=== PATIENT | male | born 1950 | race Caucasian/White ===

== ENCOUNTER 2016-11-28 17:22 | Emergency (ER) | payer MEDICARE, OTHER ==
[~2016-11-28] VITALS: Ht 185.4 cm; Wt 109.0 kg
[~2016-11-28 17:22] MED LIST: ASPI1TAB69 PO; VENTAER INH
[2016-11-28 17:25] VITALS: BP 161/72; PULSE 72; RESP 20; TEMP 97.8; O2SAT 98
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
[2016-11-28] MEDS ORDERED: LIDOCAINE HCL 1% 50 ML VIAL INFIL ONE (18:00)
[2016-11-28] MEDS ORDERED: TETANUS/DIPHTHERIA TOXOID ADULT 0.5 ML VIAL IM ONE (18:00)
[2016-11-28] MEDS ORDERED: BUPIVACAINE HCL PF 0.5% 10 ML VIAL INFIL ONE (18:00)
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
[2016-11-28] MEDS ORDERED: CEPH-460 PO (18:57)
== END 2016-11-28 19:53 | disposition home or self-care (01) ==
LOC: NEPB 17:22
DX: S61.214A Laceration without foreign body of right ring finger without damage to nail, initial encounter (principal); Z23 Encounter for immunization; Z79.82 Long term (current) use of aspirin; J44.9 Chronic obstructive pulmonary disease, unspecified; I25.10 Atherosclerotic heart disease of native coronary artery without angina pectoris; J45.909 Unspecified asthma, uncomplicated; F17.210 Nicotine dependence, cigarettes, uncomplicated; W45.8XXA Other foreign body or object entering through skin, initial encounter
CPT/HCPCS: 12002; 73140; 90471; 90714

== ENCOUNTER 2017-02-16 08:40 | Inpatient (IN) | payer MEDICARE ==
[~2017-02-16] VITALS: Ht 185.4 cm; Wt 110.0 kg
[2017-02-16] VITALS (8 sets, daily range): BP systolic 130–183; BP diastolic 71–99; PULSE 62–75; RESP 15–19; TEMP 97.7–98; O2SAT 95–99
[~2017-02-16 08:40] MED LIST changes: +CEPH-460 PO; -VENTAER INH
[2017-02-16] MEDS ORDERED: SODIUM CHLORIDE 0.9% FLUSH 10 ML FLUSH IVF PRN (09:30)
--- NOTE | 2017-02-16 09:50 | PD ---
HPI . Syncope Chief Complaint: Syncope/Near-Syncope Time Seen by Provider: 09:17 Travel History International Travel<30 days: No Contact w/Intl Traveler<30days: No Traveled to known affect area: No History of Present Illness HPI Patient presents complaining of syncope. He states that he has been having intermittent syncopal episodes for the past 3 months. He states that they have become more frequent. He states that he is now having an episode about every 2- 3 days. He states that he is usually standing when he becomes dizzy and hot and then has the syncopal episode. The episode is very brief. He states that he has noticed that the symptoms can be brought on by turning his head to the left. He notes no symptoms on turning his head to the right. He denies any associated headache, blurred vision or nausea. He does endorse chronic cough and occasional chest tightness. The cough and chest tightness are not necessarily associated with the syncopal events. DURATION: 3 months TIMING: Every 2-3 days and very brief CONTEXT: Occurs when standing MODIFYING FACTORS:Exacerbated by turning his head to the left ASSOCIATED SYMPTOMS: Feeling hot and dizzy PFSH Past Medical History Hx Anticoagulant Therapy: Yes (ASA) Asthma: Yes Cancer: No Cardiac Catheterization: Yes Cardiovascular Problems: Yes COPD: Yes Coronary Artery Disease: Yes Diabetes: No Diminished Hearing: No Endocrine: No Genitourinary: No Hepatitis: No Hiatal Hernia: No Hypertension: Yes Immune Disorder: No Musculoskeletal: No Neurologic: No Psychiatric: No Reproductive: No Respiratory: Yes Thyroid Disease: No Tetanus Vaccination: < 5 Years Influenza Vaccination: No Past Surgical History Abdominal Surgery: No AICD: No Cardiac Surgery: Yes (patient states he had heart cath at [facility] couple years ago ) Ear Surgery: No Endocrine Surgery: No Eye Surgery: No Genitourinary Surgery: No Gynecologic Surgery: No Joint Replacement: No Oral Surgery: No Pacemaker: No Thoracic Surgery: No Tonsillectomy: Yes Other Surgery: Yes (TONSILECTOMY 1959) Social History Alcohol Use: No Tobacco Use: Yes (smokes 1 1/2 packs a day ) Substance Use: No Allergies-Medications (Allergen,Severity, Reaction): Coded Allergies: No Known Allergies (Unverified , 02/16/17) Reported Meds & Prescriptions Reported Meds & Active Scripts Active Reported Aspirin 81 Mg Tabdr 81 Mg PO DAILY Review of Systems Except as stated in HPI: all other systems reviewed are Neg General / Constitutional: No: Fever, Chills Eyes: No: Diploplia, Blurred Vision HENT: Positive: Vertigo, No: Headaches Cardiovascular: Positive: Chest Pain or Discomfort Respiratory: Positive: Cough, Shortness of Breath Gastrointestinal: No: Nausea, Vomiting Neurologic: Positive: Dizziness, Syncope, No: Focal Abnormalities, Headache, Change in Mentation, Slurred Speech, Paresthesia, Incontinence Physical Exam Narrative GENERAL: Pleasant, elderly man who is currently in no acute distress. SKIN: Warm and dry. His feet are a little dirty. HEAD: Atraumatic. Normocephalic. EYES: Pupils equal and round. Extraocular movements are intact. ENT: No nasal bleeding or discharge. Mucous membranes pink and moist. NECK: Trachea midline. Neck is supple. CARDIOVASCULAR: Regular rate and rhythm. Heart sounds are normal. RESPIRATORY: No accessory muscle use. Lungs are clear with full air movement throughout. GASTROINTESTINAL: Abdomen soft, non-tender, nondistended. No pulsatile abdominal mass. MUSCULOSKELETAL: No obvious deformities. No edema. NEUROLOGICAL: Awake and alert. No obvious cranial nerve deficits. Motor grossly within normal limits. Normal speech. PSYCHIATRIC: Appropriate mood and affect; insight and judgment normal. Data Data Last Documented VS Vital Signs Date Time Temp Pulse Resp B/P Pulse Ox O2 Delivery O2 Flow Rate FiO2 02/16/17 09:45 67 19 171/92 97 Room Air 02/16/17 08:41 97.7 Orders Electrocardiogram (02/16/17 09:18) Complete Blood Count With Diff (02/16/17 09:18) Comprehensive Metabolic Panel (02/16/17 09:18) Magnesium (Mg) (02/16/17 09:18) Ckmb (Isoenzyme) Profile (02/16/17 09:18) Troponin I (02/16/17 09:18) Chest, Single Ap (02/16/17 09:18) Ct Brain W/O Iv Contrast(Rout) (02/16/17 09:18) Ecg Monitoring (02/16/17 09:18) Iv Access Insert/Monitor (02/16/17 09:18) Oximetry (02/16/17 09:18) Sodium Chloride 0.9% Flush (Ns Flush) (02/16/17 09:30) Cta Brain W Iv Contrast W 3d (02/16/17 ) Cta Neck W Iv Contrast W 3d (02/16/17 ) CKMB (02/16/17 09:45) CKMB% (02/16/17 09:45) Iohexol 350 Inj (Omnipaque 350 Inj) (02/16/17 11:37) Labs Laboratory Tests Test 02/16/17 09:45 White Blood Count 6.8 TH/MM3 Red Blood Count 4.81 MIL/MM3 Hemoglobin 14.8 GM/DL Hematocrit 43.0 % Mean Corpuscular Volume 89.4 FL Mean Corpuscular Hemoglobin 30.7 PG Mean Corpuscular Hemoglobin 34.4 % Concent Red Cell Distribution Width 14.4 % Platelet Count 215 TH/MM3 Mean Platelet Volume 7.4 FL Neutrophils (%) (Auto) 56.0 % Lymphocytes (%) (Auto) 33.4 % Monocytes (%) (Auto) 5.7 % Eosinophils (%) (Auto) 4.0 % Basophils (%) (Auto) 0.9 % Neutrophils # (Auto) 3.8 TH/MM3 Lymphocytes # (Auto) 2.3 TH/MM3 Monocytes # (Auto) 0.4 TH/MM3 Eosinophils # (Auto) 0.3 TH/MM3 Basophils # (Auto) 0.1 TH/MM3 CBC Comment DIFF FINAL Differential Comment Sodium Level 140 MEQ/L Potassium Level 3.9 MEQ/L Chloride Level 107 MEQ/L Carbon Dioxide Level 27.6 MEQ/L Anion Gap 5 MEQ/L Blood Urea Nitrogen 20 MG/DL Creatinine 0.87 MG/DL Estimat Glomerular Filtration 88 ML/MIN Rate Random Glucose 117 MG/DL Calcium Level 8.8 MG/DL Magnesium Level 2.4 MG/DL Total Bilirubin 1.3 MG/DL Aspartate Amino Transf 15 U/L (AST/SGOT) Alanine Aminotransferase 23 U/L (ALT/SGPT) Alkaline Phosphatase 65 U/L Total Creatine Kinase 124 U/L Creatine Kinase MB 3.0 NG/ML Troponin I LESS THAN 0.02 NG/ML Total Protein 7.3 GM/DL Albumin 3.8 GM/DL [facility] Medical Decision Making Medical Screen Exam Complete: Yes Emergency Medical Condition: Yes Interpretation(s) EKG shows a sinus rhythm with no ST segment elevation or depression. He does have left atrial enlargement. His EKG is unchanged from previous. Differential Diagnosis My differential diagnosis of syncope includes but is not limited to cardiac arrhythmia, hypovolemia, anemia, neurological catastrophe, vasovagal response Narrative Course Patient presents for evaluation of syncopal episodes which have been an ongoing problem for several months. Episodes are very brief. They occur about every 2- 3 days. Patient has noticed the symptoms are exacerbated by turning his head to the left. Therefore, I will interrogate his carotid arteries and brain. CBC & BMP Diagram 02/16/17 09:45 Cardiac enzymes are negative. Chest x-ray is read as negative by the radiologist. The chest x-ray has been independently viewed by me. Physician Communication Physician Communication Dr. Clark will admit for further evaluation Admitting Information Admitting Physician Requests: Admit Condition: Stable Kassie De La Torre MD Feb 16, 2017 09:50
--- NOTE | 2017-02-16 09:59 | RADRPT ---
EXAM DATE/TIME: 02/16/2017 09:32 [facility] COMPARISON: No previous studies available for comparison. INDICATIONS : Patient woke up this morning short of breath. MEDICAL HISTORY : Asthma. SURGICAL HISTORY : Tonsillectomy. Cardiac catherization. ENCOUNTER: Initial ACUITY: 1 day PAIN SCORE: 0/10 LOCATION: Bilateral chest FINDINGS: A single view of the chest demonstrates the lungs to be symmetrically aerated without evidence of mas s, infiltrate or effusion. The cardiomediastinal contours are unremarkable. Osseous structures are intact. CONCLUSION: No acute disease. Himanshu Harkins MD FACR on February 16, 2017 at 9:57 Board Certified Radiologist. This report was verified electronically.
[2017-02-16 10:07] LABS: AUTOMATED NEUTROPHIL # 3.8 TH/MM3 (1.8-7.7); BASOPHIL # 0.1 TH/MM3 (0-0.2); BASOPHIL % 0.9 % (0.0-2.0); EOSINOPHIL # 0.3 TH/MM3 (0-0.4); HEMO FLAGS DIFF FINAL; LYMPH % 33.4 % (9.0-44.0); LYMPHOCYTE # 2.3 TH/MM3 (1.0-4.8); MEAN CELL VOLUME 89.4 FL (80.0-100.0); MEAN CORPUSCULAR HEMOGLOBIN 30.7 PG (27.0-34.0); MEAN CORPUSCULAR HGB CONC 34.4 % (32.0-36.0); MONO % 5.7 % (0.0-8.0); PLATELET COUNT 215 TH/MM3 (150-450); RED BLOOD COUNT 4.81 MIL/MM3 (4.50-5.90); RED CELL DISTRIBUTION WIDTH 14.4 % (11.6-17.2); WHITE BLOOD COUNT 6.8 TH/MM3 (4.0-11.0)
[2017-02-16 10:25] LABS: ALT (GPT) 23 U/L (12-78); ANION GAP 5 MEQ/L (5-15); AST (GOT) 15 U/L (15-37); BICARBONATE 27.6 MEQ/L (21.0-32.0); BLOOD UREA NITROGEN 20 MG/DL (7-18); CHLORIDE 107 MEQ/L (98-107); GLOMERULAR FILTRATION RATE 88 ML/MIN (>89); MAGNESIUM 2.4 MG/DL (1.5-2.5); POTASSIUM 3.9 MEQ/L (3.5-5.1); SODIUM (NA) 140 MEQ/L (136-145)
[2017-02-16 10:29] LABS: ALKALINE PHOSPHATASE 65 U/L (45-117); CREATINE KINASE 124 U/L (39-308); TOTAL BILIRUBIN ADULT 1.3 MG/DL (0.2-1.0)
[2017-02-16] MEDS ORDERED: IOHEXOL 350 MG/ML 10 ML VIAL (for RAD DIAG) IV ONE (11:37)
--- NOTE | 2017-02-16 11:58 | RADRPT ---
EXAM DATE/TIME: 02/16/2017 11:13 [facility] COMPARISON: No previous studies available for comparison. INDICATIONS : Patient is complaining of dizziness several days with 2 syncople episodes RADIATION DOSE: 56.35 CTDIvol (mGy) MEDICAL HISTORY : Cardiovascular disease. Hypertension. SURGICAL HISTORY : None. ENCOUNTER: Initial ACUITY: 1 day PAIN SCALE: 3/10 LOCATION: cranial TECHNIQUE: Multiple contiguous axial images were obtained of the head. Using automated exposure control and adj ustment of the mA and/or kV according to patient size, radiation dose was kept as low as reasonably a chievable to obtain optimal diagnostic quality images. FINDINGS: CEREBRUM: The ventricles are normal for age. No evidence of midline shift, mass lesion, hemorrhage or acute in farction. No extra-axial fluid collections are seen. POSTERIOR FOSSA: The cerebellum and brainstem are intact. The 4th ventricle is midline. The cerebellopontine angle i s unremarkable. EXTRACRANIAL: The visualized portion of the orbits is intact. SKULL: The calvaria is intact. No evidence of skull fracture. CONCLUSION: No acute disease. Himanshu Harkins MD FACR on February 16, 2017 at 11:56 Board Certified Radiologist. This report was verified electronically.
--- NOTE | 2017-02-16 12:17 | RADRPT ---
EXAM DATE/TIME: 02/16/2017 11:13 [facility] COMPARISON: CT BRAIN W/O CONTRAST, February 16, 2017, 11:13. INDICATIONS : Dizziness for several days with 2 syncople episodes IV CONTRAST: 80 cc Omnipaque 350 (iohexol) IV ; Cumulative dose for multiple exams. RADIATION DOSE: 17.56 CTDIvol (mGy) ; Combined studies MEDICAL HISTORY : Cardiovascular disease. Hypertension. SURGICAL HISTORY : None. ENCOUNTER: Initial ACUITY: 1 day PAIN SCALE: 3/10 LOCATION: Cranial TECHNIQUE: Volumetric scanning was performed using a multi-row detector CT scanner. The data was post processed with a variety of visualization algorithms including full volume maximum intensity pr ojection, multi-planar sliding thin slab reformation, curved planar reformation, and surface renderin g techniques. Using automated exposure control and adjustment of the mA and/or kV according to patie nt size, radiation dose was kept as low as reasonably achievable to obtain optimal diagnostic quality images. FINDINGS: CTA of the brain was performed. Both vertebral arteries are patent. The basilar artery is very small and diminutive. Both posterior cerebral arteries arise from the anterior circulation as expected. There is no evidence for a dissection. Carotids are patent. There is no evidence for aneurysm. There is no evidence for occlusion or dissection. CONCLUSION: Negative CTA as described above. The basilar artery is very small and diminutive. Vertebral basilar disease could be a consideration. Himanshu Harkins MD FACR on February 16, 2017 at 11:57 Board Certified Radiologist. This report was verified electronically.
--- NOTE | 2017-02-16 12:57 | RADRPT ---
EXAM DATE/TIME: 02/16/2017 11:13 [facility] COMPARISON: No previous studies available for comparison. INDICATIONS : Dizziness for several weeks with 2 syncople episodes IV CONTRAST: 80 cc Omnipaque 350 (iohexol) IV ; Cumulative dose for multiple exams. RADIATION DOSE: 17.56 CTDIvol (mGy) MEDICAL HISTORY : Cardiovascular disease. Hypertension. SURGICAL HISTORY : None. ENCOUNTER: Initial ACUITY: 1 day PAIN SCALE: 3/10 LOCATION: neck Elevated flow velocities and ICA/CCA ratios have been found to correlate with increased degrees of vessel stenosis, calculated as percentage of diameter relative to a normal segment of distal ICA/CCA. TECHNIQUE: Volumetric scanning was performed using a multirow detector CT scanner. The data was post processed with a variety of visualization algorithms including full-volume maximum intensity pro jection, multiplanar sliding thin-slab reformation, curved-planar reformation, and surface-rendering techniques. Using automated exposure control and adjustment of the mA and/or kV according to patient size, radiation dose was kept as low as reasonably achievable to obtain optimal diagnostic quality i mages. FINDINGS: AORTIC ARCH: There is a three-vessel origin of the great vessels from the aorta. No evidence of ostial narrowing. The left vertebral arises from the arch. RIGHT CAROTID: The common carotid artery is intact. The carotid bulb has a normal configuration w ithout ulceration or narrowing. The internal carotid artery lumen is smooth without stenosis. The ex ternal carotid artery is intact. LEFT CAROTID: The common carotid artery is intact. The carotid bulb has a normal configuration w ithout ulceration or narrowing. The internal carotid artery lumen is smooth without stenosis. The e xternal carotid artery is intact. VERTEBRALS: The vertebral arteries have a symmetric diameter. No stenotic lesions are seen. CONCLUSION: Negative for stenosis or dissection. Small vertebrobasilar system. Himanshu Harkins MD FACR on February 16, 2017 at 12:54 Board Certified Radiologist. This report was verified electronically.
[2017-02-16] MEDS ORDERED: SODIUM CHLORIDE 0.9% FLUSH 10 ML FLUSH IV FLUSH PRN (13:45)
--- NOTE | 2017-02-16 14:13 | HHI.HP ---
HPI Service [facility] Primary Care Physician Hansa Burns Admission Diagnosis syncope Diagnoses: Chief Complaint: Syncope (Kati PuentesTammi BISWAS) Travel History International Travel<30 Days: No Contact w/Intl Traveler <30 Da: No Traveled to Known Affected Are: No (Kait Puentes) History of Present Illness This is a 66-year-old male with significant past medical history hyperlipidemia , COPD, coronary artery disease. Patient presented to the emergency room with complaint of having intermittent syncopal episodes for the last 3 months. Patient is somewhat of a poor historian. Indicates that this episodes have been happening for about 2-3 months. States that this episodes have been coming more frequently, usually has 2-3 a day. Sometimes he can be sitting or just standing. He feels hot and a flushing sensation going up to the back of the neck and then he feels dizzy. Sometimes he has enough warning and knows he' s about to pass out therefore he is able to sit, other times he has fallen to the ground. Indicates he usually wakes up immediately. He has a couple of abrasions to his forearms from the falls but no other significant injuries. At times the symptoms can be brought on by turning his head to the left. He also endorses chest tightness that sometimes is continuous, he is chronically short of breath from his COPD. Has noted dyspnea with exertion. He has a chronic cough with occasional sputum. No fever, no chills. Indicates he has noted that in the last couple months he is very sleepy and more fatigued. He did go see his primary care physician in December and he went to outpatient imaging center to have workup, he's not sure exactly what he had but it sounds like he may have had a CT of the chest and the abdomen. He was referred to a refinery operator helper cracking unit and planner internship. He was due to see the refinery operator helper cracking unit this week but had not found a planner internship yet. He did see planner internship Dr. Martinez approximately 8-10 years ago at [facility] and had cardiac catheter that showed some disease but he did not require any interventions. Patient endorses that he has been trying to quit smoking, he used to be a 2-3 pack a day smoker for the last 40 years. He is currently down to 1-1/2 packs a day. He denies any illegal drug use, no substance abuse. He is very concerned as he is raising a granddaughter. He denies any prior episodes of syncope, no strokes, no diabetes , no hypertension. Patient presented to the emergency room, laboratory workup completed was essentially unremarkable. Troponin was negative. CBC was unremarkable. Imaging studies were completed, no significant findings. No evidence of stroke. Blood pressure is slightly elevated. Last Impressions Head CT 02/16/17917 Signed Impressions: Service Date/Time: Thursday, February 16, 2017 11:13 - CONCLUSION: No acute disease. Himanshu Harkins MD FACR Chest X-Ray 02/16/17917 Signed Impressions: Service Date/Time: Thursday, February 16, 2017 09:32 - CONCLUSION: No acute disease. iHmanshu Harkins MD FACR Neck CTA 02/16/17 0000 Signed Impressions: Service Date/Time: Thursday, February 16, 2017 11:13 - CONCLUSION: Negative for stenosis or dissection. Small vertebrobasilar system. Himanshu Harkins MD FACR Twelve-lead EKG shows sinus rhythm with left atrial enlargement. Patient is admitted for further evaluation and treatment. (Kati Puentes) Review of Systems ROS Limitations: Poor Historian Respiratory: COMPLAINS OF: Cough, Snoring, Wheezing, Sputum production Cardiovascular: COMPLAINS OF: Syncope, Dyspnea on Exertion (Kati Puentes) Past Family Social History Past Medical History Hyperlipidemia Coronary artery disease, cardiac catheter 8-10 years ago for a hospital COPD Tobacco abuse Cyst in kidney, is causing hematuria, follows up with Dr. Marina Past Surgical History Tonsillectomy Cardiac catheter Colonoscopy many years ago Reported Medications Reported Meds & Active Scripts Active Reported Aspirin 81 Mg Tabdr 81 Mg PO DAILY (Kati Puentes) Allergies: Coded Allergies: No Known Allergies (Unverified , 02/16/17) Active Ordered Medications Inpatient Medications Albuterol/ Ipratropium (Duoneb Neb) 1 ampule QID NEB PRN NEB wheezing; Start at 14:45 Aspirin (Ecotrin Ec) 81 mg DAILY PO ; Start 02/17/17 at 09:00 Miscellaneous Information 1 DAILY T-DERMAL ; Start 02/17/17 at 09:00 Nicotine (Habitrol 7 Mg Patch.24 Hr) 1 patch DAILY T-DERMAL ; Start 02/16/17 at 14:45 Sodium Chloride (NS 1000 ml Inj) 1,000 ml @ 100 mls/hr Q10H IV ; Start at 13:40 Sodium Chloride (NS Flush) 2 ml BID IV FLUSH ; Start 02/16/17 at 21:00 Sodium Chloride 2 ml 2 ml UNSCH PRN IVF FLUSH AFTER USING IV ACCESS; Start at 09:30; Stop 02/16/17 at 13:54; Status DC Family History Reviewed, noncontributory Social History 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 Raising a granddaughter who is 8 years old. No alcohol abuse, no substance abuse. Was smoking 2-3 packs of cigarettes a day for the last 40 years, currently down to one and half packs a day. (Kati Puentes) Physical Exam Vital Signs Vital Signs Date Time Temp Pulse Resp B/P Pulse Ox O2 Delivery O2 Flow Rate FiO2 02/16/17 12:00 62 15 158/99 98 Room Air 02/16/17 09:45 67 19 171/92 97 Room Air 02/16/17 09:30 98 Room Air 02/16/17 08:41 97.7 75 16 183/86 99 Room Air Physical Exam GENERAL: This is a well-nourished male, appears older than stated age. SKIN: Well-healed abrasions noted to forearms. HEAD: Atraumatic. Normocephalic. No temporal or scalp tenderness. EYES: Pupils equal round and reactive. Extraocular motions intact. No scleral icterus. No injection or drainage. ENT: Nose without bleeding, purulent drainage or septal hematoma. Throat without erythema, tonsillar hypertrophy or exudate. Uvula midline. Airway patent. NECK: Trachea midline. No JVD or lymphadenopathy. Supple, nontender, no meningeal signs. CARDIOVASCULAR: Regular rate and rhythm without murmurs, gallops, or rubs. Distant heart sounds. RESPIRATORY: Diminished, poor inspiratory effort. GASTROINTESTINAL: Abdomen soft, non-tender, nondistended. No hepato-splenomegaly , or palpable masses. No guarding. MUSCULOSKELETAL: Extremities without clubbing, cyanosis. Trace ankle edema. Pedal pulses 2+ bilaterally No joint tenderness, effusion, or edema noted. No calf tenderness. Negative Homans sign bilaterally. NEUROLOGICAL: Awake and alert. Cranial nerves II through XII intact. Motor and sensory grossly within normal limits. Five out of 5 muscle strength in all muscle groups. Normal speech. Laboratory Laboratory Tests Test 02/16/17 09:45 White Blood Count 6.8 Red Blood Count 4.81 Hemoglobin 14.8 Hematocrit 43.0 Mean Corpuscular Volume 89.4 Mean Corpuscular Hemoglobin 30.7 Mean Corpuscular Hemoglobin 34.4 Concent Red Cell Distribution Width 14.4 Platelet Count 215 Mean Platelet Volume 7.4 Neutrophils (%) (Auto) 56.0 Lymphocytes (%) (Auto) 33.4 Monocytes (%) (Auto) 5.7 Eosinophils (%) (Auto) 4.0 Basophils (%) (Auto) 0.9 Neutrophils # (Auto) 3.8 Lymphocytes # (Auto) 2.3 Monocytes # (Auto) 0.4 Eosinophils # (Auto) 0.3 Basophils # (Auto) 0.1 CBC Comment DIFF FINAL Differential Comment Sodium Level 140 Potassium Level 3.9 Chloride Level 107 Carbon Dioxide Level 27.6 Anion Gap 5 Blood Urea Nitrogen 20 Creatinine 0.87 Estimat Glomerular Filtration 88 Rate Random Glucose 117 Calcium Level 8.8 Magnesium Level 2.4 Total Bilirubin 1.3 Aspartate Amino Transf 15 (AST/SGOT) Alanine Aminotransferase 23 (ALT/SGPT) Alkaline Phosphatase 65 Total Creatine Kinase 124 Creatine Kinase MB 3.0 Troponin I LESS THAN 0.02 Total Protein 7.3 Albumin 3.8 (Kati Puentes) Result Diagram: 02/16/1745 02/16/17944 Imaging Last Impressions Head CT 02/16/17917 Signed Impressions: Service Date/Time: Thursday, February 16, 2017 11:13 - CONCLUSION: No acute disease. Himanshu Harkins MD FACR Chest X-Ray 02/16/17917 Signed Impressions: Service Date/Time: Thursday, February 16, 2017 09:32 - CONCLUSION: No acute disease. Himanshu Harkins MD FACR Neck CTA 02/16/17 0000 Signed Impressions: Service Date/Time: Thursday, February 16, 2017 11:13 - CONCLUSION: Negative for stenosis or dissection. Small vertebrobasilar system. Himanshu Harkins MD FACR (Kati Puentes) Assessment and Plan Problem List: (1) Syncope (2) CAD (coronary artery disease) (3) COPD (chronic obstructive pulmonary disease) (4) Elevated BP without diagnosis of hypertension (5) Tobacco abuse (6) Emphysema lung Assessment and Plan Admit to Dr. Clark 66-year-old male with significant past medical history of COPD, hyperlipidemia. Patient presented to emergency room with complaint of syncopal episode, worsening over the last 3 months, associated with chest tightness, dyspnea with exertion. Has noted increased fatigue. Syncope, etiology unclear Consult cardiology and neurology Continuous cardiac telemetry -Continue with serial cardiac enzymes Neuro checks Cautious hydration We will check 2-D echo, carotid ultrasound We will check TSH, B12, RPR -Orthostatics every shift COPD, stable DuoNeb's when necessary Oxygen as needed Tobacco abuse counseling completed, nicotine patch offered her, patient has accepted. Knows he has to quit and has been working very hard at home. Elevated blood pressure, initially had during admission, is coming down without any intervention Continue to monitor for now, will not start any medications unless it remains elevated. Hyperlipidemia -we will check lipid profile in the morning Home medications reviewed, initiated as indicated SCDs for DVT prophylaxis Plan of care has been reviewed with the patient, attending and registered nurse. Further management of the patient will be dependent on the hospital course This patient was seen by myself and Dr. Clark, this H&P is written on his behalf (Kati Puentse) Assessment and Plan Pt seen and examined as above chart reviewed dw ER physician meds reviwed labs reviewed rad data reviwed previous notes reviewed [facility] input chago biswas about plan of care dw pt dw rn agree with above plan of care (Jordon Clark MD) Problem Qualifiers (1) Syncope: Qualified Code: R55 - Syncope, unspecified syncope type (2) CAD (coronary artery disease): Qualified Code: I25.118 - Coronary artery disease involving [place] coronary artery of [place] heart with other form of angina pectoris (3) COPD (chronic obstructive pulmonary disease): Qualified Code: J44.9 - Chronic obstructive pulmonary disease, unspecified COPD type (4) Emphysema lung: Qualified Code: J43.9 - Pulmonary emphysema, unspecified emphysema type Kati Puentes Feb 16, 2017 14:13 Jordon Clark MD Feb 16, 2017 20:40
[2017-02-16] MEDS ORDERED: RESP: ALBUTEROL 2.5 MG/IPRATROPIUM 0.5 MG NEB (PRN) NEB (14:45)
--- NOTE | 2017-02-16 16:18 | RADRPT ---
EXAM DATE/TIME: 02/16/2017 14:23 [facility] COMPARISON: No previous studies available for comparison. INDICATIONS : Syncope. MEDICAL HISTORY : Chronic obstructive pulmonary disease. Hypertension. CAD. SURGICAL HISTORY : Tonsillectomy. Cardiac catheterization. ENCOUNTER: Initial ACUITY: 3 months PAIN SCORE: 1/10 LOCATION: Bilateral neck PEAK SYSTOLIC VELOCITIES (cm/sec): ICA/CCA RATIO: Right: 0.9 Left: 0.9 ICA: Right: 51 Left: 53 CCA: Right: 58 Left: 57 ECA: Right: 94 Left: 94 VERTEBRAL: Right: 28 antegrade Left: 39 antegrade Elevated flow velocities and ICA/CCA ratios have been found to correlate with increased degrees of vessel stenosis, calculated as percentage of diameter relative to a normal segment of distal ICA/CCA FINDINGS: RIGHT CAROTID: No significant stenosis is visualized. The waveforms are within normal limits. LEFT CAROTID: No significant stenosis is visualized. The waveforms are within normal limits. VERTEBRAL ARTERIES: Antegrade flow is seen in both vertebral arteries. MISCELLANEOUS: None. CONCLUSION: 1. Patent carotid arteries bilaterally. 2. Antegrade flow involving both vertebral arteries. Wilmer Valle Jr., MD on February 16, 2017 at 16:14 Board Certified Radiologist. This report was verified electronically.
--- NOTE | 2017-02-16 16:29 | MB ---
cc: STEPHANY NORTON M.D. DATE OF CONSULTATION 02/16/2017 REASON FOR CONSULTATION Evaluation of syncope. HISTORY OF THE PRESENT ILLNESS Watson Smiley is a 66-year-old man whom I am consulting on for syncope. He says he has been having intermittent syncope for the last three months. It happens two to three times a week. Typically he is standing, he will feel dizzy and hot. Often he notices it comes on when he turns his head to the left. He gets a smell, something like Clorox or ammonia and the he passes out completely. He usually thinks that he is only out for a couple of seconds and then comes right to. Also has presyncope if he coughs real hard. He has a longstanding history of smoking with severe COPD and continues to smoke. He has had a cardiac cath apparently by Dr. Martinez at the [facility] so we are talking 10 years ago or more. He does not remember really what was found on that. He has had intermittent hypertension; he is on no medications for this. He is followed by Dr. Hansa Alfredo outside of the hospital. He describes a low grade constant tightness in his chest, a squeezing feeling, that gets better after he burps and he has this he says all the time and it gets worse when his wheezing is worse. He uses an inhaler for the wheezing. Episodes of dizziness typically occur when he is standing and he gets a dizzy hot feeling. PAST SURGICAL HISTORY 1. Includes tonsillectomy. 2. He has had previous heart cath as described. SOCIAL HISTORY Smokes a pack and a half a day. He is . MEDICATIONS Include: Aspirin. REVIEW OF SYSTEMS Complete review of systems gone over and noncontributory. PHYSICAL EXAMINATION GENERAL: Well-developed, well-nourished white male in no acute distress. VITAL SIGNS: Charted. HEENT: Exam unremarkable. NECK: No JVD, no bruits. CHEST: Shows diffuse diminished breath sounds throughout. CARDIOVASCULAR: Exam S1-S2, regular rate and rhythm. I do not appreciate murmurs or gallops. ABDOMEN: Soft, nontender. No masses or organomegaly. EXTREMITIES: No clubbing, cyanosis or edema. Pulses are intact. EKG shows sinus rhythm, slight left atrial enlargement and minor nonspecific T-wave abnormality. IMAGING He has had multiple radiographic studies at this point chest x-ray, head CT, head CTA, neck CTA with no remarkable findings. LABORATORY DATA CBC is normal. His comprehensive metabolic profile notable for glucose of 117, creatinine 0.87. Troponin is negative. IMPRESSION A 66-year-old man with repetitive episodes of the syncope, etiology unclear. PLAN I did a carotid sinus massage with a nurse recording strips. There was no bradycardia, pauses, rubbing on his left carotid. There was some slowing in his heart rate rubbing on his right carotid but he did not pass out. There is no evidence at this time for carotid disease. I would like to check an echo to see what his LV function shows. The preceding smell or ammonia or Clorox is interesting me and I am wonder if neurology will find that this is suggestive of a possible seizure. He will likely need an event recorder at discharge. Further therapy to be determined. MD CARLITO Maradiaga/BOBBY /3:48 PM /4:06 PM
--- NOTE | 2017-02-16 17:16 | PD.CONS ---
History of Present Illness Service Neurology Consult Requested By medical Reason for Consult syncope Primary Care Physician Hansa Burns History of Present Illness 66-year-old male admitted for recurrent syncope. ongoing problem for the past several weeks. can feel lightheaded when he stands or turns head to left? not the best historian. did not see episode today. seen by cardiology. carotid massage was done by dealer compliance representative and no syncope produced. on a rare occasion has gotten a sulfa/nh3 odor. no hx of sz.stroke/tia. no jerking, no b/b incontinence. no post-ictal garcia. ct brain nml. cta carotids nml. 183/86. glucose 117. smokes 1.5 ppd x decades. Review of Systems ROS Limitations: as above, rest of 12 point negative Past Family Social History Past Medical History Hyperlipidemia Coronary artery disease, cardiac catheter 8-10 years ago for a hospital COPD Tobacco abuse Cyst in kidney, is causing hematuria, follows up with Dr. Marina Past Surgical History Tonsillectomy Cardiac catheter Colonoscopy many years ago Reported Medications Reported Meds & Active Scripts Active Reported Aspirin 81 Mg Tabdr 81 Mg PO DAILY Allergies: Coded Allergies: No Known Allergies (Unverified , 02/16/17) Family History Reviewed, noncontributory Social History No alcohol abuse, no substance abuse. one and half packs a day. Review of Systems All other ROS: ROS reviewed as documented in chart Past Family Social History Allergies: Coded Allergies: No Known Allergies (Unverified , 02/16/17) Active Ordered Medications Current Medications Medications (Trade) Dose Ordered Sig/Kayla Route Start Time Stop Time Status Last Admin (NS 1000 ml Inj) 1,000 ml @ 100 mls/hr Q10H IV 02/16/17 13:40 (NS Flush) 2 ml UNSCH PRN IV FLUSH 02/16/17 13:45 (NS Flush) 2 ml BID IV FLUSH 02/16/17 21:00 (Ecotrin Ec) 81 mg DAILY PO 02/17/17 09:00 (Habitrol 7 Mg Patch.24 Hr) 1 patch DAILY T-DERMAL 02/16/17 14:45 Miscellaneous Information 1 DAILY T-DERMAL 02/17/17 09:00 Exam I&O / VS Vital Signs Date Time Temp Pulse Resp B/P Pulse Ox O2 Delivery O2 Flow Rate FiO2 02/16/17 16:32 68 18 148/96 65 18 169/90 70 18 145/89 02/16/17 12:00 62 15 158/99 98 Room Air 02/16/17 09:45 67 19 171/92 97 Room Air 02/16/17 09:30 98 Room Air 02/16/17 08:41 97.7 75 16 183/86 99 Room Air General: Alert and Oriented, No acute distress Eye: EOMI Respiratory: Non-labored respirations Cardiology: Normal rate Musculoskeletal: ROM Neurologic: Alert, Oriented, Normal sensory, Normal motor, No focal defects, CN II-XII intact, Normal DTR's Psychiatric: Cooperative, Appropriate mood & affect, Normal judgement, Non- suicidal Review/Management Diagnosis/Plan: (1) Syncope Plan: etiology: possibly 2/2 vertebrobasilar dz. + cta brain. other considerations: orthostatic/ arrhythmia r/o/ vestibular dz styloid compression of carotid/vert is possibility but cta's nml sz lesser likely but possible with questionable aura with hx of chronic tob use, would be concerned about a cardiac etiology recs tele/event monitor mri/mra brain aspirin/plavix; stop aspirin in 6 weeks check lipids may need cta's done with neck flexion/extension/rotation eeg tobacco cessation orthostatic bp's no driving (2) Tobacco abuse Plan: cessation (3) COPD (chronic obstructive pulmonary disease) Plan: tob cessation Problem Qualifiers (1) Syncope: Qualified Code: R55 - Syncope, unspecified syncope type (2) COPD (chronic obstructive pulmonary disease): Qualified Code: J44.9 - Chronic obstructive pulmonary disease, unspecified COPD type Tico Romero MD Feb 16, 2017 17:15
[2017-02-16] MEDS: SODIUM CHLOR 0.9% 1000 ML INJ 1,000 ML IV SCH (17:27)
[2017-02-16] MEDS: NICOTINE 7 MG/24 HR PATCH T-DERMAL SCH (17:28)
[2017-02-16] MEDS: CLOPIDOGREL 75 MG TAB PO SCH (18:36)
--- NOTE | 2017-02-16 19:55 | EKG ---
Date Performed: 02/16/2017 Time Performed: 09:25:23 PTAGE: 66 years EKG: Sinus rhythm POSSIBLE LEFT ATRIAL ENLARGEMENT NONSPECIFIC ST & T-WAVE ABNORMALITY BORDERLINE ECG PREVIOUS TRACING : 10/23/2016 22.01 Compared to prior tracing no significant change DOCTOR: Jesus Hernandez Interpretating Date/Time 02/16/2017 19:53:56
[2017-02-16] MEDS: SODIUM CHLORIDE 0.9% FLUSH 10 ML FLUSH IV FLUSH SCH (20:37)
[2017-02-17] VITALS (10 sets, daily range): BP systolic 122–176; BP diastolic 64–93; PULSE 13–133; RESP 18–22; TEMP 97.4–98.8; O2SAT 95–98
[2017-02-17] MEDS: SODIUM CHLOR 0.9% 1000 ML INJ 1,000 ML IV SCH ×3 (03:30→21:42)
[2017-02-17 05:14] LABS: AUTOMATED NEUTROPHIL # 5.2 TH/MM3 (1.8-7.7); BASOPHIL # 0.1 TH/MM3 (0-0.2); BASOPHIL % 0.9 % (0.0-2.0); EOSINOPHIL # 0.4 TH/MM3 (0-0.4); EOSINOPHIL % 4.8 % (0.0-4.0); HEMATOCRIT 42.3 % (39.0-51.0); HEMO FLAGS DIFF FINAL; LYMPH % 25.2 % (9.0-44.0); LYMPHOCYTE # 2.1 TH/MM3 (1.0-4.8); MEAN CELL VOLUME 89.8 FL (80.0-100.0); MEAN CORPUSCULAR HEMOGLOBIN 30.6 PG (27.0-34.0); MEAN CORPUSCULAR HGB CONC 34.1 % (32.0-36.0); MONO % 6.4 % (0.0-8.0); NEUT % 62.7 % (16.0-70.0); PLATELET COUNT 206 TH/MM3 (150-450); RED BLOOD COUNT 4.71 MIL/MM3 (4.50-5.90); RED CELL DISTRIBUTION WIDTH 14.4 % (11.6-17.2); WHITE BLOOD COUNT 8.2 TH/MM3 (4.0-11.0)
[2017-02-17 05:38] LABS: BICARBONATE 27.8 MEQ/L (21.0-32.0)
[2017-02-17 05:39] LABS: HDL CHOLESTEROL 31.3 MG/DL (40.0-60.0)
[2017-02-17] MEDS: SODIUM CHLORIDE 0.9% FLUSH 10 ML FLUSH IV FLUSH SCH ×2 (07:28→21:41)
[2017-02-17] MEDS ORDERED: DILTIAZEM HCL 30 MG TAB PO ONE ×2 (07:45→09:15)
[2017-02-17] MEDS: CLOPIDOGREL 75 MG TAB PO SCH (08:20)
[2017-02-17] MEDS: ASPIRIN EC 81 MG TABEC PO SCH (08:21)
--- NOTE | 2017-02-17 08:53 | HHI.PR ---
Subjective Remarks No dizziness No nausea vomiting No chest pain No shortness of breath No headache No numbness or tingling sensation No weakness Asking when he will go home Review of system for 12 point system otherwise unremarkable Objective Objective Results - Vital Signs Date Time Temp Pulse Resp B/P Pulse Ox O2 Delivery O2 Flow Rate FiO2 02/17/17 07:24 97.8 105 20 137/91 96 144/80 129/86 02/17/17 06:15 133 02/17/17 04:25 98.2 78 18 162/93 95 02/17/17 03:33 60 02/17/17 00:43 97.9 78 18 157/92 95 181/79 163/82 02/16/17 20:00 69 02/16/17 18:08 98.0 63 18 130/79 95 02/16/17 17:30 72 19 138/71 96 Room Air 02/16/17 16:32 68 18 148/96 65 18 169/90 70 18 145/89 02/16/17 12:00 62 15 158/99 98 Room Air 02/16/17 09:45 67 19 171/92 97 Room Air 02/16/17 09:30 98 Room Air Result Diagram: 02/17/17 0430 02/17/17 0430 Imaging Last Impressions Head CT 02/16/1718 Signed Impressions: Service Date/Time: Thursday, February 16, 2017 11:13 - CONCLUSION: No acute disease. Himanshu Harkins MD FACR Chest X-Ray 02/16/1718 Signed Impressions: Service Date/Time: Thursday, February 16, 2017 09:32 - CONCLUSION: No acute disease. Himanshu Harkins MD FACR Neck CTA 02/16/17 0000 Signed Impressions: Service Date/Time: Thursday, February 16, 2017 11:13 - CONCLUSION: Negative for stenosis or dissection. Small vertebrobasilar system. Himanshu Harkins MD FACR Other Results Laboratory Tests Test 02/16/17 02/16/17 02/17/17 02/17/17 09:45 16:25 00:11 04:30 White Blood Count 6.8 8.2 Red Blood Count 4.81 4.71 Hemoglobin 14.8 14.4 Hematocrit 43.0 42.3 Mean Corpuscular Volume 89.4 89.8 Mean Corpuscular Hemoglobin 30.7 30.6 Mean Corpuscular Hemoglobin 34.4 34.1 Concent Red Cell Distribution Width 14.4 14.4 Platelet Count 215 206 Mean Platelet Volume 7.4 7.4 Neutrophils (%) (Auto) 56.0 62.7 Lymphocytes (%) (Auto) 33.4 25.2 Monocytes (%) (Auto) 5.7 6.4 Eosinophils (%) (Auto) 4.0 4.8 Basophils (%) (Auto) 0.9 0.9 Neutrophils # (Auto) 3.8 5.2 Lymphocytes # (Auto) 2.3 2.1 Monocytes # (Auto) 0.4 0.5 Eosinophils # (Auto) 0.3 0.4 Basophils # (Auto) 0.1 0.1 CBC Comment DIFF FINAL DIFF FINAL Differential Comment Sodium Level 140 143 Potassium Level 3.9 4.0 Chloride Level 107 110 Carbon Dioxide Level 27.6 27.8 Anion Gap 5 5 Blood Urea Nitrogen 20 17 Creatinine 0.87 0.89 Estimat Glomerular Filtration 88 86 Rate Random Glucose 117 97 Calcium Level 8.8 8.4 Magnesium Level 2.4 Total Bilirubin 1.3 Aspartate Amino Transf 15 (AST/SGOT) Alanine Aminotransferase 23 (ALT/SGPT) Alkaline Phosphatase 65 Total Creatine Kinase 124 Creatine Kinase MB 3.0 Troponin I LESS THAN 0.02 LESS THAN 0.02 LESS THAN 0.02 Total Protein 7.3 Albumin 3.8 Vitamin B12 Level 429 Thyroid Stimulating Hormone 1.900 3rd Gen Triglycerides Level 110 Cholesterol Level 154 LDL Cholesterol 101 HDL Cholesterol 31.3 Cholesterol/HDL Ratio 4.92 Physical Exam Physical Exam GENERAL: This is a well-nourished male, appears older than stated age. SKIN: Well-healed abrasions noted to forearms. HEAD: Atraumatic. Normocephalic. No temporal or scalp tenderness. EYES: Pupils equal round and reactive. Extraocular motions intact. No scleral icterus. No injection or drainage. ENT: Airway patent. NECK: Trachea midline. No JVD or lymphadenopathy. Supple, nontender. CARDIOVASCULAR: Irregularly irregular rhythm at rate between 100 - 130 without murmurs, gallops, or rubs. Distant heart sounds. RESPIRATORY: Diminished, poor inspiratory effort. Clear chest GASTROINTESTINAL: Abdomen soft, non-tender, nondistended. No hepato-splenomegaly , or palpable masses. No guarding. MUSCULOSKELETAL: Extremities without clubbing, cyanosis. Trace ankle edema. Pedal pulses 2+ bilaterally No joint tenderness, effusion, or edema noted. No calf tenderness. Negative Homans sign bilaterally. NEUROLOGICAL: Awake and alert. Cranial nerves II through XII intact. Motor and sensory grossly within normal limits. Five out of 5 muscle strength in all muscle groups. Normal speech. A/P Assessment and Plan (1) Syncope (2) CAD (coronary artery disease) (3) COPD (chronic obstructive pulmonary disease) (4) Elevated BP without diagnosis of hypertension (5) Tobacco abuse (6) Emphysema lung Plan 66-year-old male with significant past medical history of COPD, hyperlipidemia. Patient presented to emergency room with complaint of syncopal episode, worsening over the last 3 months, associated with chest tightness, dyspnea with exertion. Has noted increased fatigue. Syncope, etiology likely secondary to atrial fibrillation paroxysmal Appreciate consultation by and neurology Continuous cardiac telemetry showing atrial fibrillation -Negative serial cardiac enzymes Neuro checks Cautious hydration We will check 2-D echo, carotid ultrasound Within normal limits TSH, B12, pending RPR -Orthostatics every shift Paroxysmal atrial fibrillation -Increased heart rate RVR. start Cardizem. Start Lovenox -Cardiology on board will defer anticoagulation to cardiology COPD, stable DuoNeb's when necessary Oxygen as needed Tobacco abuse counseling completed, nicotine patch offered her, patient has accepted. Knows he has to quit and has been working very hard at home. Elevated blood pressure, initially had during admission, is coming down without any intervention Continue to monitor for now, will not start any medications unless it remains elevated. Hyperlipidemia -Lipid profile reviewed. Nicotine abuse -Nicotine cessation counseling given Home medications reviewed, initiated as indicated Lovenox for DVT prophylaxis Plan of care has been reviewed with the patient and registered nurse. Transferred to [address] Further management of the patient will be dependent on the hospital course Jordon Clark MD Feb 17, 2017 08:53
[2017-02-17] MEDS ORDERED: ASPIRIN EC 81 MG TABEC PO SCH (09:00)
[2017-02-17 09:44] LABS: RAPID PLASMA REAGIN SCREEN NON-REACTIVE (NON-REACTVE)
--- NOTE | 2017-02-17 10:10 | PD.CARD.PN ---
Subjective Subjective Remarks No complaints Objective Medications Current Medications Medications (Trade) Dose Ordered Sig/Kayla Route Start Time Stop Time Status Last Admin (NS 1000 ml Inj) 1,000 ml @ 100 mls/hr Q10H IV 02/16/17 13:40 02/17/17 03:30 (NS Flush) 2 ml UNSCH PRN IV FLUSH 02/16/17 13:45 (NS Flush) 2 ml BID IV FLUSH 02/16/17 21:00 (Habitrol 7 Mg Patch.24 Hr) 1 patch DAILY T-DERMAL 02/16/17 14:45 02/16/17 17:28 Miscellaneous Information 1 DAILY T-DERMAL 02/17/17 09:00 (Ecotrin Ec) 325 mg DAILY PO 02/17/17 09:00 02/17/17 08:21 (Plavix) 75 mg DAILY PO 02/16/17 18:00 02/17/17 08:20 (Lovenox Inj) 40 mg Q24H SQ 02/17/17 09:00 (Cardizem) 30 mg Q6HR PO 02/17/17 12:00 Vital Signs / I&O Vital Signs Date Time Temp Pulse Resp B/P Pulse Ox O2 Delivery O2 Flow Rate FiO2 02/17/17 07:24 97.8 105 20 137/91 96 144/80 129/86 02/17/17 06:15 133 02/17/17 04:25 98.2 78 18 162/93 95 02/17/17 03:33 60 02/17/17 00:43 97.9 78 18 157/92 95 181/79 163/82 02/16/17 20:00 69 02/16/17 18:08 98.0 63 18 130/79 95 02/16/17 17:30 72 19 138/71 96 Room Air 02/16/17 16:32 68 18 148/96 65 18 169/90 70 18 145/89 02/16/17 12:00 62 15 158/99 98 Room Air Physical Exam Alert Chest decreased BS with rhonchi (COPD) CV S1S2 RRR earlier had afib RVR, no tele strip of its termination Ext no edema Laboratory Laboratory Tests Test 02/16/17 02/17/17 02/17/17 16:25 00:11 04:30 Troponin I LESS THAN 0.02 LESS THAN 0.02 NG/ML NG/ML Vitamin B12 Level 429 PG/ML Thyroid Stimulating Hormone 1.900 uIU/ML 3rd Gen White Blood Count 8.2 TH/MM3 Red Blood Count 4.71 MIL/MM3 Hemoglobin 14.4 GM/DL Hematocrit 42.3 % Mean Corpuscular Volume 89.8 FL Mean Corpuscular Hemoglobin 30.6 PG Mean Corpuscular Hemoglobin 34.1 % Concent Red Cell Distribution Width 14.4 % Platelet Count 206 TH/MM3 Mean Platelet Volume 7.4 FL Neutrophils (%) (Auto) 62.7 % Lymphocytes (%) (Auto) 25.2 % Monocytes (%) (Auto) 6.4 % Eosinophils (%) (Auto) 4.8 % Basophils (%) (Auto) 0.9 % Neutrophils # (Auto) 5.2 TH/MM3 Lymphocytes # (Auto) 2.1 TH/MM3 Monocytes # (Auto) 0.5 TH/MM3 Eosinophils # (Auto) 0.4 TH/MM3 Basophils # (Auto) 0.1 TH/MM3 CBC Comment DIFF FINAL Differential Comment Sodium Level 143 MEQ/L Potassium Level 4.0 MEQ/L Chloride Level 110 MEQ/L Carbon Dioxide Level 27.8 MEQ/L Anion Gap 5 MEQ/L Blood Urea Nitrogen 17 MG/DL Creatinine 0.89 MG/DL Estimat Glomerular Filtration 86 ML/MIN Rate Random Glucose 97 MG/DL Calcium Level 8.4 MG/DL Triglycerides Level 110 MG/DL Cholesterol Level 154 MG/DL LDL Cholesterol 101 MG/DL HDL Cholesterol 31.3 MG/DL Cholesterol/HDL Ratio 4.92 RATIO Rapid Plasma Reagin NON-REACTIVE Assessment and Plan Problem List: (1) Paroxysmal atrial fibrillation (2) Tobacco abuse (3) Syncope (4) COPD (chronic obstructive pulmonary disease) Assessment and Plan consult Dr. Joy Problem Qualifiers (1) Syncope: Qualified Code: R55 - Syncope, unspecified syncope type (2) COPD (chronic obstructive pulmonary disease): Qualified Code: J44.9 - Chronic obstructive pulmonary disease, unspecified COPD type Brandon Michael MD Feb 17, 2017 10:10
[2017-02-17] MEDS: ENOXAPARIN SODIUM 40 MG/0.4 ML SYRINGE SQ SCH (10:34)
[2017-02-17] MEDS: NICOTINE 7 MG/24 HR PATCH T-DERMAL SCH (10:38)
[2017-02-17] MEDS: REMOVE OLD PATCH T-DERMAL SCH (10:39)
--- NOTE | 2017-02-17 10:56 | EC ---
Study Study Date:02/17/2017 STUDY CONCLUSIONS SUMMARY - Left ventricle: The cavity size was normal. Wall thickness was normal. Systolic function was normal. The estimated ejection fraction was in the range of 55% to 65%. Wall motion was normal; there were no regional wall motion abnormalities. - Mitral valve: Valve area by pressure half-time: 2.2cm^2. If LV function is below 40, please consider prescribing an ACEI or ARB or document rationale for non-use. PROCEDURE DATA STUDY STATUS: Elective. Procedure: Transthoracic echocardiography. Image quality was poor. Scanning was performed from the parasternal, apical, and subcostal acoustic windows. Study completion: The patient tolerated the procedure well. Transthoracic echocardiography. M-mode, complete 2D, complete spectral Doppler, and color Doppler. Height: Height: 73in. Weight: Weight: 241.5lb. Body mass index: BMI: 31.9kg/m^2. Body surface area: BSA: 2.33m^2. Patient status: Inpatient. CARDIAC ANATOMY LEFT VENTRICLE: The cavity size was normal. Wall thickness was normal. Systolic function was normal. The estimated ejection fraction was in the range of 55% to 65%. Wall motion was normal; there were no regional wall motion abnormalities. AORTIC VALVE: Trileaflet; normal thickness leaflets. Doppler: Transvalvular velocity was within the normal range. There was no stenosis. No regurgitation. AORTA: Aortic root: The aortic root was normal in size. MITRAL VALVE: Structurally normal valve. Doppler: Transvalvular velocity was within the normal range. There was no evidence for stenosis. No regurgitation. Valve area by pressure half-time: 2.2cm^2. Indexed valve area by pressure half-time: 0.94cm^2/m^2. LEFT ATRIUM: The atrium was normal in size. RIGHT VENTRICLE: The cavity size was normal. Wall thickness was normal. PULMONIC VALVE: Doppler: Transvalvular velocity was within the normal range. There was no evidence for stenosis. No regurgitation. TRICUSPID VALVE: Structurally normal valve. Doppler: Transvalvular velocity was within the normal range. No regurgitation. PULMONARY ARTERY: The main pulmonary artery was normal-sized. Systolic pressure was within the normal range. RIGHT ATRIUM: The atrium was normal in size. PERICARDIUM: There was no pericardial effusion. SYSTEMIC VEINS: Inferior vena cava: The vessel was normal in size. Patient weight: 241.5lb _Ejection fraction:_ 65-75% _Fractional shortening:_ 32% up to 5Kg 5-11.5Kg 11.6-22.9Kg 23-45Kg 45-57Kg Aortic Root 7-13 <17 13-22 17-27 17-27 LA diam 6-13 <23 24-38 33-47 37-40 RVID 10-17 7-15 7-15 7-18 8-17 LVIDd 12-22 <32 24-38 33-47 37-40 LVPW 2-4 3-6 5-7 6-8 7-8 IVS 2-4 3-6 5-7 6-8 7-8 BASIC MEASUREMENTS ADULT NORMAL Left ventricle LV internal dimension, ED, chordal *40.8 mm 43-52 level, PLAX LV internal dimension, ES, chordal 26.5 mm 23-38 level, PLAX Fractional shortening, chordal level, 35 % >29 PLAX LV posterior wall thickness, ED 10.2 mm IVS/LVPW ratio, ED 1 <1.3 Volume, ED, MOD, 1-plane 122 ml Volume, ES, MOD, 1-plane 42 ml Ejection fraction, MOD, 1-plane 66 % Stroke volume, MOD, 1-plane 80 ml Volume index, ED, MOD, 1-plane 52 ml/m^2 Volume index, ES, MOD, 1-plane 18 ml/m^2 Stroke index, MOD, 1-plane 34.3 ml/m^2 Ventricular septum Septal thickness, ED 10.2 mm Aortic valve Leaflet separation 19 mm 15-26 Left atrium Anterior-posterior dimension 34 mm Anterior-posterior dimension index 1.46 cm/m^2 <2.2 BASIC MEASUREMENTS ADULT NORMAL Aortic valve Leaflet separation 19 mm 15-26 Aorta Root diameter, ED 35 mm 20-37 DOPPLER MEASUREMENTS ADULT NORMAL Aortic valve Peak velocity, S 111 cm/s Regurgitant velocity, ED 233 cm/s Regurgitant deceleration 1300 cm/s^2 Regurgitant pressure half-time 525 ms Regurgitant gradient, ED 22 mm Hg Mitral valve Peak E-wave velocity 44.9 cm/s Peak A-wave velocity 47.9 cm/s Pressure half-time 100 ms Peak E/A ratio 0.9 Valve area, pressure half-time 2.2 cm^2 Valve area index, pressure half-time 0.94 cm^2/m^2 LEGEND: Mean values are shown as u=mean value. Asterisk (*) gray values outside specified normal range. Prepared and signed by Mati Reynolds [id number]
[2017-02-17] MEDS: DILTIAZEM HCL 30 MG TAB PO SCH ×2 (12:05→17:37)
[2017-02-17] MEDS: ACETAMINOPHEN 325 MG TAB PO PRN (12:54)
--- NOTE | 2017-02-17 13:30 | EKG ---
Date Performed: 02/16/2017 Time Performed: 16:40:58 PTAGE: 66 years EKG: Sinus rhythm WITH OCCASIONAL SUPRAVENTRICULAR PREMATURE COMPLEXES NONSPECIFIC ST & T-WAVE ABNORMALITY BORDERLINE ECG PREVIOUS TRACING : 02/16/2017 09.25 Compared to prior tracing no significant change DOCTOR: Jin Pritchett Interpretating Date/Time 02/17/2017 13:28:49
--- NOTE | 2017-02-17 15:27 | EKG ---
Date Performed: 02/17/2017 Time Performed: 06:38:55 PTAGE: 66 years EKG: ATRIAL FIBRILLATION WITH RAPID VENTRICULAR RESPONSE NONSPECIFIC ST & T-WAVE ABNORMALITY. Wh en compared to previous tracing, atrial fibrillation with rapid Ventricular response has replaced Sin us rhythm . ABNORMAL RHYTHM ECG PREVIOUS TRACING : 02/16/2017 16.40 DOCTOR: Jin Pritchett Interpretating Date/Time 02/17/2017 15:26:17
[2017-02-18] VITALS (9 sets, daily range): BP systolic 128–161; BP diastolic 62–84; PULSE 59–78; RESP 16–20; TEMP 97.5–98.8; O2SAT 95–98
[2017-02-18] MEDS: DILTIAZEM HCL 30 MG TAB PO SCH ×3 (01:11→12:00)
[2017-02-18] MEDS: SODIUM CHLOR 0.9% 1000 ML INJ 1,000 ML IV SCH ×2 (06:40→16:08)
[2017-02-18] MEDS: ENOXAPARIN SODIUM 40 MG/0.4 ML SYRINGE SQ SCH (08:34)
[2017-02-18] MEDS: REMOVE OLD PATCH T-DERMAL SCH (08:35)
[2017-02-18] MEDS: ASPIRIN EC 81 MG TABEC PO SCH (08:35)
[2017-02-18] MEDS: CLOPIDOGREL 75 MG TAB PO SCH (08:35)
[2017-02-18] MEDS: NICOTINE 7 MG/24 HR PATCH T-DERMAL SCH (08:35)
[2017-02-18] MEDS: SODIUM CHLORIDE 0.9% FLUSH 10 ML FLUSH IV FLUSH SCH ×2 (08:36→21:00)
[2017-02-18] MEDS: ACETAMINOPHEN 325 MG TAB PO PRN (08:40)
--- NOTE | 2017-02-18 09:19 | HHI.PR ---
Subjective Remarks No dizziness No nausea vomiting No chest pain No shortness of breath No headache No numbness or tingling sensation No weakness Asking when he will go home Review of system for 10 point system otherwise unremarkable Objective Objective Results - Vital Signs Date Time Temp Pulse Resp B/P Pulse Ox O2 Delivery O2 Flow Rate FiO2 02/18/17 08:12 97.5 63 16 138/76 96 02/18/17 07:56 59 02/18/17 04:00 98.8 78 18 128/68 97 02/17/17 23:57 98.8 70 21 133/75 97 02/17/17 20:45 63 02/17/17 19:02 97.5 70 20 142/69 98 139/76 176/73 02/17/17 16:10 97.4 73 20 163/90 97 02/17/17 11:49 97.6 71 22 130/75 96 128/64 122/64 Result Diagram: 02/17/17 0430 02/17/17 0430 Imaging Last Impressions Head CT 02/16/17917 Signed Impressions: Service Date/Time: Thursday, February 16, 2017 11:13 - CONCLUSION: No acute disease. Himanshu Harkins MD FACR Chest X-Ray 02/16/1718 Signed Impressions: Service Date/Time: Thursday, February 16, 2017 09:32 - CONCLUSION: No acute disease. Himanshu Harkins MD FACR Neck CTA 02/16/17 0000 Signed Impressions: Service Date/Time: Thursday, February 16, 2017 11:13 - CONCLUSION: Negative for stenosis or dissection. Small vertebrobasilar system. Himanshu Harkins MD FACR Physical Exam Physical Exam GENERAL: This is a well-nourished male, appears older than stated age. SKIN: Well-healed abrasions noted to forearms. HEAD: Atraumatic. Normocephalic. No temporal or scalp tenderness. EYES: Pupils equal round and reactive. Extraocular motions intact. No scleral icterus. No injection or drainage. ENT: Airway patent. NECK: Trachea midline. No JVD or lymphadenopathy. Supple, nontender. CARDIOVASCULAR: controlled rate between, without murmurs, gallops, or rubs. Distant heart sounds. RESPIRATORY: Diminished, poor inspiratory effort. Clear chest GASTROINTESTINAL: Abdomen soft, non-tender, nondistended. No hepato-splenomegaly , or palpable masses. No guarding. MUSCULOSKELETAL: Extremities without clubbing, cyanosis. Trace ankle edema. Pedal pulses 2+ bilaterally No joint tenderness, effusion, or edema noted. No calf tenderness. Negative Homans sign bilaterally. NEUROLOGICAL: Awake and alert. Cranial nerves II through XII intact. Motor and sensory grossly within normal limits. Five out of 5 muscle strength in all muscle groups. Normal speech. A/P Assessment and Plan (1) Syncope (2) CAD (coronary artery disease) (3) COPD (chronic obstructive pulmonary disease) (4) Elevated BP without diagnosis of hypertension (5) Tobacco abuse (6) Emphysema lung Plan 66-year-old male with significant past medical history of COPD, hyperlipidemia. Patient presented to emergency room with complaint of syncopal episode, worsening over the last 3 months, associated with chest tightness, dyspnea with exertion. Has noted increased fatigue. Syncope, etiology likely secondary to atrial fibrillation paroxysmal Appreciate consultation by and neurology Continuous cardiac telemetry controlled rate -Negative serial cardiac enzymes Cautious hydration Report of 2-D echo, carotid ultrasound reviewed Within normal limits TSH, B12, pending RPR -Orthostatics every shift Paroxysmal atrial fibrillation -Controlled rate. Cardizem. 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 Knows he has to quit and has been working very hard at home. Elevated blood pressure, initially had during admission, is coming down without any intervention Continue to monitor for now, will not start any medications unless it remains elevated. Hyperlipidemia -Lipid profile reviewed. Nicotine abuse -Nicotine cessation counseling given Home medications reviewed, initiated as indicated Lovenox for DVT prophylaxis Plan of care has been reviewed with the patient and registered nurse. 4 N. Further management of the patient will be dependent on the hospital course Jordon Clark MD Feb 18, 2017 09:18
[2017-02-18] MEDS ORDERED: DILTIAZEM HCL 30 MG TAB PO ONE (12:15)
--- NOTE | 2017-02-18 12:43 | HHI.PR ---
Review/Management Diagnosis/Plan: (1) Syncope Plan: etiology: likely 2/2 afib with rvr does have vertebrobasilar dz. + cta brain with hx of chronic tob use, would be concerned about a cardiac etiology recs neuro stable eeg-pending tobacco cessation antiplatelet d/c planning from neuro after eeg; can f/u outpatient no driving unless eeg nml (2) Tobacco abuse Plan: cessation (3) COPD (chronic obstructive pulmonary disease) Plan: tob cessation Subjective Subjective Comments No acute events reported No headache No chest pain No dyspnea Active Medications Current Medications Medications (Trade) Dose Ordered Sig/Kayla Route Start Time Stop Time Status Last Admin (NS 1000 ml Inj) 1,000 ml @ 100 mls/hr Q10H IV 02/16/17 13:40 02/18/17 06:40 (NS Flush) 2 ml UNSCH PRN IV FLUSH 02/16/17 13:45 (NS Flush) 2 ml BID IV FLUSH 02/16/17 21:00 02/17/17 21:41 (Habitrol 7 Mg Patch.24 Hr) 1 patch DAILY T-DERMAL 02/16/17 14:45 02/18/17 08:35 Miscellaneous Information 1 DAILY T-DERMAL 02/17/17 09:00 02/18/17 08:35 (Ecotrin Ec) 325 mg DAILY PO 02/17/17 09:00 02/18/17 08:35 (Plavix) 75 mg DAILY PO 02/16/17 18:00 02/18/17 08:35 (Lovenox Inj) 40 mg Q24H SQ 02/17/17 09:00 02/18/17 08:34 (Cardizem) 30 mg Q6HR PO 02/17/17 12:00 02/18/17 06:39 (Tylenol) 650 mg Q6H PRN PO 02/17/17 12:45 02/18/17 08:40 Allergies Allergies Coded Allergies No Known Allergies (Unverified02/16/17) Review of Systems All other ROS: ROS reviewed as documented in chart Exam I&O / VS Vital Signs Date Time Temp Pulse Resp B/P Pulse Ox O2 Delivery O2 Flow Rate FiO2 02/18/17 11:08 98.2 70 16 144/74 97 158/78 157/79 02/18/17 09:15 98.1 62 16 128/62 96 134/74 129/73 02/18/17 08:12 97.5 63 16 138/76 96 02/18/17 07:56 59 02/18/17 04:00 98.8 78 18 128/68 97 02/17/17 23:57 98.8 70 21 133/75 97 02/17/17 20:45 63 02/17/17 19:02 97.5 70 20 142/69 98 139/76 176/73 02/17/17 16:10 97.4 73 20 163/90 97 General: Alert and Oriented, No acute distress Eye: EOMI Respiratory: Non-labored respirations Musculoskeletal: ROM Neurologic: Alert, Oriented, Normal motor, No focal defects, CN II-XII intact, Normal DTR's Psychiatric: Cooperative, Appropriate mood & affect, Normal judgement, Non- suicidal Problem Qualifiers (1) Syncope: Qualified Code: R55 - Syncope, unspecified syncope type (2) COPD (chronic obstructive pulmonary disease): Qualified Code: J44.9 - Chronic obstructive pulmonary disease, unspecified COPD type Tico Romero MD Feb 18, 2017 12:43
--- NOTE | 2017-02-18 16:42 | MB ---
cc: BRITTANY LEIJA M.D. DATE OF CONSULTATION: 02/18/2017 REASON FOR CONSULTATION: Atrial fibrillation with biventricular response and syncope. HISTORY: Mr. Smiley is a 66-year-old gentleman with history of high blood pressure, episode of syncope tachyarrhythmia atrial fibrillation, previously had a heart catheterization over [address] Martinez, indicated no ischemia, admitted due to near syncope and palpitation. He was found with atrial fibrillation with biventricular response. I was consulted for further evaluation and management. The chart was reviewed. The patient was evaluated. ALLERGIES NONE. SOCIAL HISTORY The patient still smokes a pack and a half of cigarettes per day. Negative for drinking. FAMILY HISTORY Noncontributory to his current medical condition. MEDICATIONS Currently 1. He is on aspirin. 2. Albuterol inhaler. 3. Lipitor 10 mg a day. 4. Plavix 75 mg a day. 5. Cardizem. REVIEW OF SYSTEMS He refers no chest pain or discomfort, some episode of dizziness and near syncope and palpitation or vomiting. No fever. PHYSICAL EXAMINATION: VITAL SIGNS: Physical exam, Alert, fully oriented. Blood pressure on evaluation, 138/76, pulse 63, respiratory rate 18 LUNGS: Ventilated CARDIOVASCULAR SYSTEM: S1-S2 irregular. No gallop. ABDOMEN: Soft. No mass. No bruits. EXTREMITIES: No edema. RADIOLOGIC: Electrocardiogram show episodes of atrial fibrillation, Subsequently in sinus rhythm and telemetry. LABORATORY DATA Hemoglobin 14.4, white blood cell 8.2, potassium 4.0, creatinine 0.89, troponin less than 0.02. ASSESSMENT AND RECOMMENDATIONS Mr. Smiley has a symptomatic atrial fibrillation. He is currently on Cardizem. He was not on anticoagulation. He is a LUZ ELE[employer] VAS one to two. At this point I am going to put him on long-acting Cardizem. Also I am going to initiate anticoagulation. Plavix will be DC. The gentleman will be readmitted for a atrial fibrillation ablation once fully anticoagulated. Case extensively discussed with him. Please for the current disposition chart. Brittany Leija MD / /3:43 PM /4:28 PM
[2017-02-18] MEDS: DILTIAZEM-CD 180 MG CAP ER PO SCH (17:58)
[2017-02-18] MEDS ORDERED: ATORVASTATIN 10 MG TAB PO SCH (21:00)
--- NOTE | 2017-02-18 21:03 | MG ---
cc: JUWAN RODRIGUEZ Lab No: [id number] Date: 02/17/17 Age: Sex: M Race: Syncope, multiple syncopal episodes, Lovenox Plavix A symmetric 8 Hz 60 microvolt posterior rhythm and diffuse rhythm is noted. Recording overall is synchronous and symmetric. No epileptiform or seizure activity is noted. No hemisphere asymmetry is seen. Some small phase reversing sharply contoured alpha waves are seen __ seven at epoch 87 on the bipolar and transverse montage. Photic stimulation is performed without significant posterior driving. The patient appears to become drowsy involving the stage II sleep. Hyperventilation was not performed. The abnormality noted at epoch 87 looks more like probably a psychomotor variant. IMPRESSION Essentially normal EEG. Likely a psychomotor variant over the left frontotemporal head region, although a left temporal or frontal abnormality could be ruled out. Clinical correlation is needed. MD TA Singh/ /6:17 PM /8:58 PM
[2017-02-18] MEDS: APIXABAN 5 MG TABLET PO SCH (21:04)
[2017-02-19 00:29] VITALS: BP 136/77; PULSE 68; RESP 20; TEMP 97.6; O2SAT 95
[2017-02-19] MEDS: ACETAMINOPHEN 325 MG TAB PO PRN ×2 (00:30→07:58)
[2017-02-19 04:00] VITALS: PULSE 62
[2017-02-19 04:16] VITALS: BP 125/73; PULSE 64; RESP 20; TEMP 97.6; O2SAT 95
[2017-02-19] MEDS: SODIUM CHLOR 0.9% 1000 ML INJ 1,000 ML IV SCH (05:10)
[2017-02-19 07:16] VITALS: BP 130/72; PULSE 58; RESP 20; TEMP 97.7; O2SAT 94
[2017-02-19] MEDS: DILTIAZEM-CD 180 MG CAP ER PO SCH (07:58)
[2017-02-19] MEDS: NICOTINE 7 MG/24 HR PATCH T-DERMAL SCH (07:58)
[2017-02-19] MEDS: APIXABAN 5 MG TABLET PO SCH (07:58)
[2017-02-19] MEDS: REMOVE OLD PATCH T-DERMAL SCH (07:58)
[2017-02-19] MEDS: SODIUM CHLORIDE 0.9% FLUSH 10 ML FLUSH IV FLUSH SCH (07:58)
--- NOTE | 2017-02-19 07:58 | HHI.PR ---
Subjective Remarks no cp no sob no palpitations no dizziness no fever c/o headache anxious to go home Objective Objective Results - Vital Signs Date Time Temp Pulse Resp B/P Pulse Ox O2 Delivery O2 Flow Rate FiO2 02/19/17 07:16 97.7 58 20 130/72 94 02/19/17 04:16 97.6 64 20 125/73 95 02/19/17 04:00 62 02/19/17 00:29 97.6 68 20 136/77 95 02/18/17 20:00 71 02/18/17 19:53 98.6 67 20 145/84 95 159/83 143/79 02/18/17 18:41 64 02/18/17 16:05 97.5 61 18 161/74 98 02/18/17 11:08 98.2 70 16 144/74 97 158/78 157/79 02/18/17 09:15 98.1 62 16 128/62 96 134/74 129/73 02/18/17 08:12 97.5 63 16 138/76 96 02/18/17 07:56 59 I/O 02/18/17 02/18/17 02/18/17 02/19/17 02/19/17 02/19/17 07:00 15:00 23:00 07:00 15:00 23:00 Output Total 1000 ml Balance -1000 ml Output Urine Total 1000 ml # Voids 2 Result Diagram: 02/17/17 04302/17/17 043 Imaging Last Impressions Head CT 02/16/17917 Signed Impressions: Service Date/Time: Thursday, February 16, 2017 11:13 - CONCLUSION: No acute disease. Himanshu Harkins MD FACR Chest X-Ray 02/16/17917 Signed Impressions: Service Date/Time: Thursday, February 16, 2017 09:32 - CONCLUSION: No acute disease. Himanshu Harkins MD FACR Neck CTA 02/16/17 0000 Signed Impressions: Service Date/Time: Thursday, February 16, 2017 11:13 - CONCLUSION: Negative for stenosis or dissection. Small vertebrobasilar system. 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 SKIN: Well-healed abrasions noted to forearms. HEAD: Atraumatic. Normocephalic. No temporal or scalp tenderness. EYES: Pupils equal round and reactive. Extraocular motions intact. No scleral icterus. No injection or drainage. ENT: Airway patent. NECK: Trachea midline. No JVD or lymphadenopathy. Supple, nontender. CARDIOVASCULAR: S1, S2, moises, without murmurs, gallops, or rubs. Distant heart sounds. RESPIRATORY: Diminished, poor inspiratory effort. Clear chest GASTROINTESTINAL: Abdomen soft, non-tender, nondistended. No hepato-splenomegaly , or palpable masses. No guarding. MUSCULOSKELETAL: Extremities without clubbing, cyanosis. Trace ankle edema. Pedal pulses 2+ bilaterally No joint tenderness, effusion, or edema noted. No calf tenderness. Negative Homans sign bilaterally. NEUROLOGICAL: Awake and alert. Cranial nerves II through XII intact. Motor and sensory grossly within normal limits. Five out of 5 muscle strength in all muscle groups. Normal speech. Urinary Catheter: No Vascular Central Line Catheter: No A/P Diagnosis: (1) Syncope (2) CAD (coronary artery disease) (3) COPD (chronic obstructive pulmonary disease) (4) Elevated BP without diagnosis of hypertension (5) Tobacco abuse (6) Emphysema lung (7) Paroxysmal atrial fibrillation Assessment and Plan 66-year-old male with significant past medical history of COPD, hyperlipidemia. Patient presented to emergency room with complaint of syncopal episode, worsening over the last 3 months, associated with chest tightness, dyspnea with exertion. Has noted increased fatigue. Syncope, etiology likely secondary to atrial fibrillation paroxysmal Appreciate consultation by and neurology Continuous cardiac telemetry controlled rate -Negative serial cardiac enzymes Echo done, EF 50-55% -EEG normal Within normal limits TSH, B12, pending RPR -Orthostatics every shift-ok -cleared by neurology, can f/u OP Paroxysmal atrial fibrillation -Controlled rate. Cardizem. -Cardiology on board will defer anticoagulation to cardiology -EP fork repairer consult requested-Dr Joy evaluated, recommended Eliquis, continue CCB. Will have pt. f/u as OP for ablation. D/C'd Plavix COPD, stable DuoNeb's when necessary Oxygen as needed Tobacco abuse counseling completed, nicotine patch offered her, patient has accepted. Knows he has to quit and has been working very hard at home. Requests Nicotine for discharge Elevated blood pressure, initially had during admission, is coming down without any intervention BP stable, continue CCB Hyperlipidemia -Lipid profile reviewed. Nicotine abuse -Nicotine cessation counseling given Clinically stable, no syncope work up completed will have RN ambulate, dc IVF Plan to dc this afternoon F/U Dr Joy 1 week F/U Dr. Mack 2 weeks Diet-heart healthy Counselled to quit smoking, motivated Activity-as tolerated, recommend to have drive for next 2 weeks D/W RN D/W Dr. Clark D/W pt This patient was seen by myself and Dr. Clark, this note is written on his behalf. Problem Qualifiers (1) Syncope: Qualified Code: R55 - Syncope, unspecified syncope type (2) CAD (coronary artery disease): Qualified Code: I25.118 - Coronary artery disease involving [place] coronary artery of [place] heart with other form of angina pectoris (3) COPD (chronic obstructive pulmonary disease): Qualified Code: J44.9 - Chronic obstructive pulmonary disease, unspecified COPD type (4) Emphysema lung: Qualified Code: J43.9 - Pulmonary emphysema, unspecified emphysema type Kati Puentes Feb 19, 2017 07:58
[2017-02-19 08:00] VITALS: PULSE 60
[2017-02-19] MEDS ORDERED: CARD180C5 PO (08:01)
[2017-02-19] MEDS ORDERED: LIPI10TA PO (08:01)
[2017-02-19] MEDS ORDERED: APIX5TAB PO (08:01)
[2017-02-19] MEDS ORDERED: NICO14DI T-DERMAL (08:02)
--- NOTE | 2017-02-19 08:03 | HHI.DCPOC ---
Discharge Care Plan Diagnosis: (1) Emphysema lung (2) COPD (chronic obstructive pulmonary disease) (3) CAD (coronary artery disease) (4) Syncope (5) Tobacco abuse (6) Elevated BP without diagnosis of hypertension (7) Paroxysmal atrial fibrillation Your Health Problems Are: Chest Pain Shortness of Breath Goals to Promote Your Health * To prevent worsening of your condition and complications * To maintain your health at the optimal level Directions to Meet Your Goals Take your medications as prescribed Follow your dietary instruction Follow activity as directed Keep your appointments as scheduled Take your immunizations and boosters as scheduled If your symptoms worsen call your PCP, if no PCP go to Urgent Care Center or Emergency Room Smoking is Dangerous to Your Health. Avoid second hand smoke Call the 24-hour hour crisis hotline for domestic abuse at Kati Puentes [facility] Feb 19, 2017 08:03
--- NOTE | 2017-02-19 08:12 | HHI.DS ---
Discharge Summary Admission Date Feb 17, 2017 at 08:58 Discharge Date: Feb 19, 2017 Admitting Diagnosis syncope (1) Syncope (2) CAD (coronary artery disease) (3) COPD (chronic obstructive pulmonary disease) (4) Elevated BP without diagnosis of hypertension (5) Tobacco abuse (6) Emphysema lung (7) Paroxysmal atrial fibrillation CBC/BMP: 02/17/17 0430 02/17/17 0430 Significant Findings Laboratory Tests Test 02/16/17 02/16/17 02/17/17 02/17/17 09:45 16:25 00:11 04:30 Blood Urea Nitrogen 20 MG/DL (7-18) Estimat Glomerular Filtration 88 ML/MIN (>89) 86 ML/MIN (>89) Rate Random Glucose 117 MG/DL (74-106) Total Bilirubin 1.3 MG/DL (0.2-1.0) Troponin I LESS THAN 0.02 LESS THAN 0.02 LESS THAN 0.02 NG/ML NG/ML NG/ML (0.02-0.05) (0.02-0.05) (0.02-0.05) Eosinophils (%) (Auto) 4.8 % (0.0-4.0) Chloride Level 110 MEQ/L (98-107) Calcium Level 8.4 MG/DL (8.5-10.1) LDL Cholesterol 101 MG/DL (0-99) HDL Cholesterol 31.3 MG/DL (40.0-60.0) Imaging Last Impressions Head CT 02/16/17917 Signed Impressions: Service Date/Time: Thursday, February 16, 2017 11:13 - CONCLUSION: No acute disease. Himanshu Harkins MD FACR Chest X-Ray 02/16/17917 Signed Impressions: Service Date/Time: Thursday, February 16, 2017 09:32 - CONCLUSION: No acute disease. Himanshu Harkins MD FACR Neck CTA 02/16/17 0000 Signed Impressions: Service Date/Time: Thursday, February 16, 2017 11:13 - CONCLUSION: Negative for stenosis or dissection. Small vertebrobasilar system. Himanshu Harkisn MD FACR Head CTA 02/16/17 0000 Signed Impressions: Service Date/Time: Thursday, February 16, 2017 11:13 - CONCLUSION: Negative CTA as described above. The basilar artery is very small and diminutive. Vertebral basilar disease could be a consideration. Himanshu Harkins MD FACR Carotid Artery Ultrasound 02/16/17 0000 Signed Impressions: Service Date/Time: Thursday, February 16, 2017 14:23 - CONCLUSION: 1. Patent carotid arteries bilaterally. 2. Antegrade flow involving both vertebral arteries. Wilmer Valle Jr., MD Hospital Course This is a 66-year-old male with significant past medical history hyperlipidemia , COPD, coronary artery disease. Patient presented to the emergency room with complaint of having intermittent syncopal episodes for the last 3 months. Patient is somewhat of a poor historian. Indicates that this episodes have been happening for about 2-3 months. States that this episodes have been coming more frequently, usually has 2-3 a day. Sometimes he can be sitting or just standing. He feels hot and a flushing sensation going up to the back of the neck and then he feels dizzy. Sometimes he has enough warning and knows he' s about to pass out therefore he is able to sit, other times he has fallen to the ground. Indicates he usually wakes up immediately. He has a couple of abrasions to his forearms from the falls but no other significant injuries. At times the symptoms can be brought on by turning his head to the left. He also endorses chest tightness that sometimes is continuous, he is chronically short of breath from his COPD. Has noted dyspnea with exertion. He has a chronic cough with occasional sputum. No fever, no chills. Indicates he has noted that in the last couple months he is very sleepy and more fatigued. He did go see his primary care physician in December and he went to outpatient imaging center to have workup, he's not sure exactly what he had but it sounds like he may have had a CT of the chest and the abdomen. He was referred to a graffiti cleaner and bank vault attendant. He was due to see the graffiti cleaner this week but had not found a bank vault attendant yet. He did see bank vault attendant Dr. Martinez approximately 8-10 years ago at [facility] and had cardiac catheter that showed some disease but he did not require any interventions. Patient endorses that he has been trying to quit smoking, he used to be a 2-3 pack a day smoker for the last 40 years. He is currently down to 1-1/2 packs a day. He denies any illegal drug use, no substance abuse. He wa very concerned as he is raising a granddaughter. He denied any prior episodes of syncope, no strokes, no diabetes , no hypertension. Patient presented to the emergency room, laboratory workup completed was essentially unremarkable. Troponin was negative. CBC was unremarkable. Imaging studies were completed, no significant findings. No evidence of stroke. Blood pressure is slightly elevated. Last Impressions Head CT 02/16/17917 Signed Impressions: Service Date/Time: Thursday, February 16, 2017 11:13 - CONCLUSION: No acute disease. Himanshu Harkins MD FACR Chest X-Ray 02/16/17917 Signed Impressions: Service Date/Time: Thursday, February 16, 2017 09:32 - CONCLUSION: No acute disease. Himanshu Harkins MD FACR Neck CTA 02/16/17 0000 Signed Impressions: Service Date/Time: Thursday, February 16, 2017 11:13 - CONCLUSION: Negative for stenosis or dissection. Small vertebrobasilar system. Himanshu Harkins MD FACR Twelve-lead EKG shows sinus rhythm with left atrial enlargement. Patient was admitted for further evaluation and treatment for: (1) Syncope (2) CAD (coronary artery disease) (3) COPD (chronic obstructive pulmonary disease) (4) Elevated BP without diagnosis of hypertension (5) Tobacco abuse (6) Emphysema lung (7) Paroxysmal atrial fibrillation During the course of the hospitalization, the following took place: 66-year-old male with significant past medical history of COPD, hyperlipidemia. Patient presented to emergency room with complaint of syncopal episode, worsening over the last 3 months, associated with chest tightness, dyspnea with exertion. Had noted increased fatigue. Syncope, etiology likely secondary to atrial fibrillation paroxysmal. The next day after admission, pt. went into afib with RVR. Appreciate consultation by and neurology Continuous cardiac telemetry --controlled rate -Negative serial cardiac enzymes Echo done, EF 50-55% -EEG normal Within normal limits TSH, B12, pending RPR -Orthostatics every shift-ok -neurology cleared, likely cause of syncope due to afib, Pt. noted with vertebrobasilar dz. + cta brain. Initially recommended Plavix and started on statins. Paroxysmal atrial fibrillation -Controlled rate. Put on Cardizem. -Director Export Dr. Michael evaluated first, due to afib, EP was consulted, Dr. Joy. -Dr. Joy evaluated --recommended to continue CCB, due to CHADS VASC 1-2 started on Eliquis. -Pt. started on CCB, tolerated. well. HR low 50s, no dizziness, ambulated well. -Plavix dc'd per Dr. Joy, cleared for discharge. Recommended follow up as OP for ablation on 03/10. COPD, stable DuoNeb's when necessary Oxygen as needed Tobacco abuse counseling completed, nicotine patch offered her, patient accepted. Knows he has to quit and has been working very hard at home. Requested Nicotine for discharge Elevated blood pressure, initially had during admission, was coming down BP stable, continue CCB Hyperlipidemia -Lipid profile reviewed. -started on statins Nicotine abuse -Nicotine cessation counseling given Clinically stable, no syncope work up completed RN ambulated, no dizziness, no syncope. No CP, no SOB Discharged home in stable condition, instructed to: F/U Dr Joy 1 week F/U Dr. Mack 2 weeks Diet-heart healthy Counselled to quit smoking, motivated Activity-as tolerated, recommended to have drive for next 2 weeks Pt Condition on Discharge: Stable Discharge Disposition: Discharge Home Discharge Instructions DIET: Follow Instructions for: Heart Healthy Diet Speech Therapy-Diet Recommends: Regular Activities you can perform: Weight Bearing as Michelle Other Activity Instructions: recommended no driving for next couple of weeks Follow up Referrals: Cardiology - 1 Week with Sandy Joy MD Neurology - 2 Weeks with Tico Romero MD PCP Follow-up New Medications: Nicotine Patch (Nicotine Patch) 14 Mg/24 Hr Patch 14 MG T-DERMAL DAILY Smoking Cessation #30 Ref 1 PATCH Apixaban (Eliquis) 5 Mg Tab 5 MG PO BID ATRIAL FIBRILLATION #30 Ref 1 TAB Atorvastatin (Lipitor) 10 Mg Tab 10 MG PO HS HYPERLIPIDEMIA #30 Ref 1 TAB Diltiazem CD 24 HR (Cardizem CD 24 HR) 180 Mg Caper 180 MG PO DAILY ATRIAL FIBRILLATION #30 Ref 1 CAP Discontinued Medications: Aspirin (Aspirin) 81 Mg Tabdr 81 MG PO DAILY TAB Kati Puentes Feb 19, 2017 08:12 Kati Puentes Feb 19, 2017 08:12
--- NOTE | 2017-02-19 14:38 | HHI.PR ---
Subjective Remarks Feeling better Objective Vital Signs Date Time Temp Pulse Resp B/P Pulse Ox O2 Delivery O2 Flow Rate FiO2 02/19/17 07:16 97.7 58 20 130/72 94 02/19/17 04:16 97.6 64 20 125/73 95 02/19/17 04:00 62 02/19/17 00:29 97.6 68 20 136/77 95 02/18/17 20:00 71 02/18/17 19:53 98.6 67 20 145/84 95 159/83 143/79 02/18/17 18:41 64 02/18/17 16:05 97.5 61 18 161/74 98 I/O 02/18/17 02/18/17 02/18/17 02/19/17 02/19/17 02/19/17 07:00 15:00 23:00 07:00 15:00 23:00 Output Total 1000 ml Balance -1000 ml Output Urine Total 1000 ml # Voids 2 Result Diagram: 02/17/17 04302/17/17 043 Imaging Alert, fully oriented Lungs: ventilated Heart: S1, S2 regular Abdomen: soft, no mass Ext: no edema Current Medications Medications (Trade) Dose Ordered Sig/Kayla Route Start Time Stop Time Status Last Admin (NS Flush) 2 ml UNSCH PRN IV FLUSH 02/16/17 13:45 (NS Flush) 2 ml BID IV FLUSH 02/16/17 21:00 02/19/17 07:58 (Habitrol 7 Mg Patch.24 Hr) 1 patch DAILY T-DERMAL 02/16/17 14:45 02/19/17 07:58 Miscellaneous Information 1 DAILY T-DERMAL 02/17/17 09:00 02/19/17 07:58 (Tylenol) 650 mg Q6H PRN PO 02/17/17 12:45 02/19/17 07:58 (Lipitor) 10 mg HS PO 02/18/17 21:00 (Cardizem Cd) 180 mg DAILY PO 02/18/17 18:00 02/19/17 07:58 (Eliquis) 5 mg BID PO 02/18/17 21:00 02/19/17 07:58 Assessment and Plan Problem List: (1) Paroxysmal atrial fibrillation Status: Acute Plan: Back into sinus rhythm Symptomatic when in afib Eliquis initiated Will be DH Anticoagulation for 3 weeks then ablation will be scheduled case discussed extensively with patient (2) Syncope Status: Acute Plan: No new episode since hospitalization Problem Qualifiers (1) Syncope: Qualified Code: R55 - Syncope, unspecified syncope type Sandy Joy MD Feb 19, 2017 14:38
== END 2017-02-19 15:22 | disposition home or self-care (01) | DRG 310 ==
LOC: NEPA 08:40 → INTOOBSV 12:52 → NEDA 12:52 → NEPHCDU 17:51 → OBSVTOIN 02-17 08:58
PROVIDERS: ADMIT Specialist; ATTEND Specialist
DX: I48.0 Paroxysmal atrial fibrillation (principal); J44.9 Chronic obstructive pulmonary disease, unspecified; I25.119 Atherosclerotic heart disease of native coronary artery with unspecified angina pectoris; E78.5 Hyperlipidemia, unspecified; N28.1 Cyst of kidney, acquired; I10 Essential (primary) hypertension; F17.210 Nicotine dependence, cigarettes, uncomplicated
CPT/HCPCS: 70450; 70496; 70498; 71010; 80048; 80053; 80061; 82550; 82552; 82607; 83735; 84443; 84484; 85025; 86592; 93005; 93306; 93880; 95819; G0378; J1650; J7030; Q9967

== ENCOUNTER 2017-03-10 05:56 | Day surgery (SDC) | payer MEDICARE ==
[~2017-03-10] VITALS: Ht 185.4 cm; Wt 113.3 kg
[2017-03-10] VITALS (17 sets, daily range): BP systolic 82–149; BP diastolic 54–96; PULSE 71–85; RESP 18; TEMP 98.1–99.1; O2SAT 78–100
[~2017-03-10 05:56] MED LIST changes: +APIX5TAB PO; -ASPI1TAB69 PO; +CARD180C5 PO; -CEPH-460 PO; +LIPI10TA PO; +NICO14DI T-DERMAL
[2017-03-10] MEDS ORDERED: METOPROLOL TARTRATE 25 MG TAB PO PRN (06:30)
[2017-03-10] MEDS ORDERED: INSULIN HUMAN REGULAR 1,000 UNITS/10 ML VIAL SQ PRN (06:30)
[2017-03-10] MEDS ORDERED: LACTATED RINGER'S 1000 ML IV PRN (06:30)
[2017-03-10] MEDS ORDERED: CHLORHEXIDINE GLUCONATE 2 % 1 PACK (2 CLOTHS) TOPICAL PRN (06:30)
[2017-03-10] MEDS ORDERED: SODIUM CHLORID 0.9% 500 ML INJ 500 ML IV SCH (06:30)
[2017-03-10] MEDS ORDERED: POVIDONE IODINE 5% (ANTISEPSIS KIT) 4 APPLICATIONS EACH NARE PRN (06:30)
[2017-03-10] MEDS ORDERED: LORazepam 1 MG TAB SL SCH (06:30)
[2017-03-10] MEDS ORDERED: SODIUM CHLORID 0.9% 500 ML IV PRN (06:30)
[2017-03-10] MEDS ORDERED: ATOR10TA15 PO (06:39)
[2017-03-10] MEDS ORDERED: APIX5TAB PO (06:39)
[2017-03-10] MEDS ORDERED: PERC10TA27 PO (06:39)
[2017-03-10] MEDS ORDERED: DILT180C56 PO (06:39)
[2017-03-10 07:36] LABS: AUTOMATED NEUTROPHIL # 3.5 TH/MM3 (1.8-7.7); BASOPHIL # 0.1 TH/MM3 (0-0.2); BASOPHIL % 1.1 % (0.0-2.0); EOSINOPHIL # 0.4 TH/MM3 (0-0.4); EOSINOPHIL % 5.8 % (0.0-4.0); HEMATOCRIT 41.8 % (39.0-51.0); HEMO FLAGS DIFF FINAL; LYMPH % 35.9 % (9.0-44.0); LYMPHOCYTE # 2.5 TH/MM3 (1.0-4.8); MEAN CELL VOLUME 88.3 FL (80.0-100.0); MEAN CORPUSCULAR HEMOGLOBIN 30.6 PG (27.0-34.0); MEAN CORPUSCULAR HGB CONC 34.7 % (32.0-36.0); MONO % 7.4 % (0.0-8.0); NEUT % 49.8 % (16.0-70.0); PLATELET COUNT 244 TH/MM3 (150-450); RED BLOOD COUNT 4.73 MIL/MM3 (4.50-5.90); RED CELL DISTRIBUTION WIDTH 14.4 % (11.6-17.2)
[2017-03-10] MEDS ORDERED: HEPARIN-NS/PF INJ 500 ML ONE ×2 (07:56→08:15)
[2017-03-10] MEDS ORDERED: LEVOFLOXACIN 500 MG PREMIX INJ 100 ML IV ONE (07:56)
[2017-03-10 07:57] LABS: BICARBONATE 29.3 MEQ/L (21.0-32.0); POTASSIUM 3.8 MEQ/L (3.5-5.1)
[2017-03-10 08:14] LABS: PROTHROMBIN TIME - PATIENT 10.7 SEC (9.8-11.6)
[2017-03-10] MEDS ORDERED: HEPARIN-D5W INJ 250 ML ONE (08:30)
[2017-03-10] MEDS ORDERED: HEPARIN SODIUM - IV 10,000 UNITS/10 ML VIAL ONE (08:30)
[2017-03-10] MEDS ORDERED: ISOPROTERENOL HCL 1 MG/5 ML AMP ONE (08:31)
[2017-03-10] MEDS ORDERED: PROTAMINE SULFATE 50 MG/5 ML VIAL ONE (08:31)
--- NOTE | 2017-03-10 10:37 | PD.CARD ---
Atrial Fibrillation Ablation PROCEDURE DATE: Mar 10, 2017 PROCEDURES PERFORMED: 1. Electrophysiology study on Isuprel infusion 2. CS cannulation 3. 3-D mapping 4. Transseptal approach 5. Right and left heart catheterization 6. Intracardiac echo 7. Radiofrequency ablation of atrial fibrillation 8. Pulmonary vein isolation 9. Posterior wall ablation 10. Mitral line creation 11. Anterior wall ablation INDICATIONS FOR THE PROCEDURE Mr. Smiley is a 66-year-old male with atrial fibrillation, recent hospitalization, very symptomatic, on anticoagulation, admitted for electrophysiology study and ablation. The risks, the nature and the benefits of the procedure were clearly stated to him. The risks include pneumothorax, cardiac perforation, stroke, need for open heart surgery and even . The patient understood and agreed to proceed. DESCRIPTION OF THE PROCEDURE IN DETAIL As written informed consent was obtained prior to esophageal echocardiogram, the patient was kept on the table where he was prepped and draped in the usual sterile fashion. Conscious sedation was initiated and maintained throughout the procedure by the anesthesiologist. Once sedation was verified, the right and left inguinal areas were anesthetized with 2% Xylocaine. Using modified Seldinger technique, the left femoral vein was cannulated on three occasions, three guidewires were advanced. Over the wire a 6, 7 and a 10-Gu[place] Hemaquet were advanced. Then the left femoral artery was cannulated on one occasion, one guidewire was advanced. Over the wire a 4-[place] Hemaquet was advanced. Then the right femoral vein was cannulated on one occasion, one guidewire was advanced. Over the wire a 8-[place] Hemaquet was advanced. Then under fluoroscopic guidance through the 6 and 7-Gu[place]ian Hemaquet, two 5-Guamanian Marycarmen curved quadripolar electrophysiology catheters were advanced and placed around the His as well as coronary sinus. Basic interval was measured. The patient was in sinus rhythm. Through the 10-[place] Hema[place], a Cordis Tee AcuNav intracardiac echo catheter was advanced and placed at the right atrium. Multiple view was obtained. There is pericardial effusion, pulmonary vein was seen, atrial septal was visualized. Then the 8-Gu[place]ian Hemaquet in the right femoral vein was exchanged for Agilis transseptal sheath that was placed all the way to the superior vena cava. Through the sheath a Mary Ann needle was advanced, then the sheath, the dilator and the needle were progressed until foci engaged. Once engaged, the needle was advanced. RF was delivered for 2 seconds. I was able to cross into the left atrium. Once the needle crossed, the dilator was advanced. Once the dilator crossed, the sheath was advanced. Once the sheath crossed, the dilator and the needle were removed. At this point I did flood the system and fluid movement was seen in the left atrium the indicates the sheath is in good position. The patient already received 10,000 units of heparin. The goal is to keep an ACT around 350 during ablation. Then through the sheath a [place]. [place] 20 pulse circumferential catheter was advanced. Using [employer] endocardial solution mapping system, a two-dimensional configuration of the left atrium was obtained. Points were taken at the left superior and inferior veins, right superior and inferior veins, mitral valve, and appendages. Then through the sheath a [place]. Ross TactiCath 65cm 3.5mm irrigated tipped mapping and radiofrequency ablation catheter was advanced. Esophageal probe was placed temperature monitoring during ablation. When it increased to 0.5 degrees Celsius above baseline, I moved to a different area of the atrium. First I did isolate the left superior and inferior vein. I did make a quartz valley around the veins. Posterior was ablated. Then a mitral line was created. Then the right superior and inferior veins were isolated. I did remap the atrium. There is no significant signal in the atrium. At that point I did advance the circumferential catheter again into the vein. There was no signal into the vein, pacing from the vein showed no conduction to the atrium. Isuprel infusion was initiated at 20 mcg for over 10 minutes. No tachyarrhythmia was induced, post Isuprel no tachyarrhythmia was induced. At that point the procedure was complete. All catheters were removed, atrial septal sheath was exchanged for 9-Guamanian Hemaquet, intracardiac echo showed no pericardial effusion. There is still good flow in the pulmonary vein. The patient is going to be transferred to the recovery room. No incident report. The patient tolerated the procedure. Blood loss was minimal. FINDINGS 1. Electrocardiogram: At baseline the patient was in sinus rhythm, post procedure EKG was unchanged. 2. Basic interval: Base cycle length was around 940. AH at 102 and HV at 48 milliseconds. 3. Tachyarrhythmia: Atrial fibrillation was mapped and ablated. The ablation was successful. CONCLUSION Successful electrophysiology study, mapping, radiofrequency ablation of atrial fibrillation, pulmonary vein isolation, posterior ablation, mitral line creation. COMMENTS AND RECOMMENDATIONS The patient is going to be transferred to the telemetry unit. Will be observed and when stable can be discharged home. Sandy Joy MD Mar 10, 2017 10:37
[2017-03-10] MEDS ORDERED: METOCLOPRAMIDE HCL 10 MG/2 ML VIAL IV PRN (10:45)
[2017-03-10] MEDS ORDERED: ONDANSETRON HCL 4 MG/2 ML VIAL IV PRN (10:45)
[2017-03-10] MEDS ORDERED: LORazepam 2 MG/ML VIAL IV PRN (10:45)
[2017-03-10] MEDS ORDERED: BACITRACIN OINT 0.9 GM PKT TOP ONE (10:45)
[2017-03-10] MEDS ORDERED: oxyCODONE/ACETAMINOPHEN 5 MG/325 MG TAB PO PRN ×2 (10:45)
[2017-03-10] MEDS ORDERED: LIDOCAINE HCL 1% 50 ML VIAL INFIL PRN (10:45)
[2017-03-10] MEDS ORDERED: ATROPINE SULFATE 1 MG/ML VIAL IV PRN (10:45)
[2017-03-10] MEDS ORDERED: oxyCODONE/ACETAMINOPHEN 10 MG/325 MG TAB PO PRN (10:45)
[2017-03-10] MEDS ORDERED: SODIUM CHLOR 0.9% 250 ML INJ 250 ML IV PRN (10:45)
--- NOTE | 2017-03-10 10:45 | ETE ---
Study Study Date:03/10/2017 STUDY CONCLUSIONS SUMMARY - Left ventricle: The cavity size was normal. Wall thickness was normal. Systolic function was normal. The estimated ejection fraction was in the range of 60% to 65%. Wall motion was normal; there were no regional wall motion abnormalities. - Aortic valve: No evidence of vegetation. - Mitral valve: No evidence of vegetation. - Left atrium: The atrium was mildly dilated. No evidence of thrombus in the atrial cavity or appendage. No evidence of thrombus in the atrial cavity or appendage. - Right atrium: No evidence of thrombus in the atrial cavity or appendage. - Atrial septum: No defect or patent foramen ovale was identified. Echo contrast study showed no bpxjq-ti-axjo atrial level shunt, at baseline or with provocation. - Tricuspid valve: No evidence of vegetation. - Pulmonic valve: No evidence of vegetation. If LV function is below 40, please consider prescribing an ACEI or ARB or document rationale for non-use. PROCEDURE DATA Consent: The risks, benefits, and alternatives to the procedure were explained to the patient and informed consent was obtained. Procedure: Initial setup. The patient was brought to the laboratory in the fasting state. Intravenous access was obtained. Surface ECG leads and pulse oximetric signals were monitored. Sedation. Conscious sedation was administered by anesthesiology. Transesophageal echocardiography. Topical anesthesia was obtained using viscous lidocaine. A transesophageal probe was inserted by the attending counter cutter. Image quality was good. Study completion: All IVs inserted during the procedure were removed. The patient tolerated the procedure well. There were no complications. Transesophageal echocardiography. 2D, complete spectral Doppler, and color Doppler. CARDIAC ANATOMY LEFT VENTRICLE: The cavity size was normal. Wall thickness was normal. Systolic function was normal. The estimated ejection fraction was in the range of 60% to 65%. Wall motion was normal; there were no regional wall motion abnormalities. AORTIC VALVE: Trileaflet; mildly thickened leaflets. Cusp separation was normal. No evidence of vegetation. Doppler: No significant regurgitation. Aorta: - There was no atheroma. There was no evidence for dissection. Aortic root: The aortic root was not dilated. Ascending aorta: The ascending aorta was normal in size. Aortic arch: The aortic arch was normal in size. Descending aorta: The descending aorta was normal in size. MITRAL VALVE: Structurally normal valve. Leaflet separation was normal. No evidence of vegetation. Doppler: Trace regurgitation. LEFT ATRIUM: The atrium was mildly dilated. No evidence of thrombus in the atrial cavity or appendage. No evidence of thrombus in the atrial cavity or appendage. The appendage was morphologically a left appendage, multilobulated, and of normal size. Emptying velocity was normal. ATRIAL SEPTUM: No defect or patent foramen ovale was identified. Echo contrast study showed no mbxhw-qj-oyau atrial level shunt, at baseline or with provocation. RIGHT VENTRICLE: The cavity size was normal. Wall thickness was normal. Systolic function was normal. PULMONIC VALVE: Structurally normal valve. No evidence of vegetation. TRICUSPID VALVE: Structurally normal valve. Leaflet separation was normal. No evidence of vegetation. Doppler: No significant regurgitation. PULMONARY ARTERY: The main pulmonary artery was normal-sized. RIGHT ATRIUM: The atrium was normal in size. No evidence of thrombus in the atrial cavity or appendage. The appendage was morphologically a right appendage. PERICARDIUM: There was no pericardial effusion. Prepared and signed by Sandy Joy [id number]
[2017-03-10] MEDS ORDERED: *RESP: ALBUTEROL 2.5 MG/3 ML NEB (PRN) PERIprocedural Use ONLY NEB ONE (11:09)
[2017-03-10] MEDS ORDERED: FUROSEMIDE 20 MG/2 ML VIAL ONE (11:10)
[2017-03-10] MEDS ORDERED: FUROSEMIDE 40 MG/4 ML VIAL IV PUSH ONE (11:30)
[2017-03-10] MEDS ORDERED: PHENYLEPHRINE HCL 10 MG/ML VIAL ONE (11:37)
[2017-03-10] MEDS ORDERED: SODIUM CHLORID 0.9% 500 ML INJ 500 ML ONE (12:12)
[2017-03-10] MEDS ORDERED: DEXTROSE 5% IN WATE 500 ML INJ 500 ML ONE (12:12)
--- NOTE | 2017-03-10 13:54 | EKG ---
Date Performed: 03/10/2017 Time Performed: 10:56:32 PTAGE: 66 years EKG: Sinus rhythm NONSPECIFIC T-WAVE ABNORMALITY BORDERLINE ECG Compared to prior tracing no significant change PREVIOUS TRACING : 02/17/2017 06.38 DOCTOR: Jin Pritchett Interpretating Date/Time 03/10/2017 13:51:35
--- NOTE | 2017-03-10 13:55 | EKG ---
Date Performed: 03/10/2017 Time Performed: 06:48:56 PTAGE: 66 years EKG: Sinus rhythm Inferior/lateral ST-T changes are nonspecific Borderline ECG Compared to prior tracing no significan t change PREVIOUS TRACING : 02/17/2017 06.38 DOCTOR: Jin Pritchett Interpretating Date/Time 03/10/2017 13:51:43
[2017-03-10] MEDS ORDERED: fentaNYL CITRATE 250 MCG/5 ML AMP ONE (14:29)
[2017-03-10] MEDS ORDERED: ATORVASTATIN 10 MG TAB PO SCH (21:00)
[2017-03-10] MEDS: APIXABAN 5 MG TABLET PO SCH (22:04)
[2017-03-11] VITALS (14 sets, daily range): BP systolic 121–155; BP diastolic 74–87; PULSE 73–93; RESP 18; TEMP 98.6–98.8; O2SAT 92–95
[2017-03-11] MEDS: APIXABAN 5 MG TABLET PO SCH (07:58)
[2017-03-11] MEDS ORDERED: DILTIAZEM-CD 180 MG CAP ER PO SCH (09:00)
--- NOTE | 2017-03-11 09:40 | PD.CARD.PN ---
Subjective Subjective Remarks Post-afib ablation No chest pain, no shortness of breath, doing well Telemetry with sinus rhythm, 2 episodes of PAT Objective Medications Current Medications Medications (Trade) Dose Ordered Sig/Kayla Route Start Time Stop Time Status Last Admin (Percocet 5-325 Mg) 1 tab Q4H PRN PO 03/10/17 10:45 (Percocet 5-325 Mg) 2 tab Q4H PRN PO 03/10/17 10:45 (Ativan Inj) 0.5 mg UNSCH PRN IV 03/10/17 10:45 03/11/17 10:44 Atropine Sulfate 0.5 mg 0.5 mg UNSCH PRN IV 03/10/17 10:45 (NS 250 ml Inj) 250 ml @ 500 mls/hr ONCE PRN IV 03/10/17 10:45 03/11/17 10:44 (Reglan Inj) 10 mg Q4H PRN IV 03/10/17 10:45 (Zofran Inj) 4 mg Q4H PRN IV 03/10/17 10:45 (Xylocaine 1% Inj (50 ml)) 10 ml UNSCH PRN INFIL 03/10/17 10:45 03/11/17 10:44 (Eliquis) 5 mg BID PO 03/10/17 21:00 03/11/17 07:58 (Lipitor) 10 mg HS PO 03/10/17 21:00 (Cardizem Cd) 180 mg DAILY PO 03/11/17 09:00 03/11/17 07:58 Vital Signs / I&O Vital Signs Date Time Temp Pulse Resp B/P Pulse Ox O2 Delivery O2 Flow Rate FiO2 03/11/17 08:15 98.6 81 18 121/74 93 03/11/17 06:00 73 03/11/17 05:00 84 03/11/17 04:47 92 21 03/11/17 04:00 93 03/11/17 04:00 98.8 88 18 155/87 92 03/11/17 03:00 84 03/11/17 02:00 80 03/11/17 01:00 80 03/11/17 00:00 76 03/11/17 00:00 98.6 77 18 129/75 95 03/10/17 23:00 76 03/10/17 22:00 80 03/10/17 21:00 82 03/10/17 20:00 99.1 82 18 113/64 98 03/10/17 20:00 76 03/10/17 18:00 78 03/10/17 17:00 72 03/10/17 16:00 98.2 73 18 82/54 95 03/10/17 16:00 98.2 73 18 82/54 95 03/10/17 16:00 74 03/10/17 15:00 85 18 114/72 100 03/10/17 14:46 81 18 112/69 99 03/10/17 14:30 80 18 103/71 99 03/10/17 14:15 80 18 107/66 98 03/10/17 14:00 78 18 107/70 100 03/10/17 13:45 78 18 116/74 100 03/10/17 13:30 76 18 115/71 100 03/10/17 13:15 74 18 113/73 100 03/10/17 13:15 98.6 74 18 115/76 78 03/10/17 13:07 77 03/10/17 12:42 97.4 78 16 109/73 98 Nasal Cannula 2 03/10/17 12:30 71 16 123/75 98 Nasal Cannula 2 03/10/17 12:15 74 16 104/64 98 Nasal Cannula 2 03/10/17 12:00 76 16 114/70 99 Nasal Cannula 2 03/10/17 11:55 73 16 127/81 98 Nasal Cannula 2 03/10/17 11:50 69 16 110/71 98 Nasal Cannula 2 03/10/17 11:45 70 16 95/60 98 Nasal Cannula 2 03/10/17 11:35 70 16 93/56 97 Nasal Cannula 2 03/10/17 11:30 70 16 85/55 97 Nasal Cannula 2 03/10/17 11:15 76 16 88/56 99 Nasal Cannula 2 03/10/17 11:00 73 16 97/60 96 Nasal Cannula 2 03/10/17 10:50 98.0 72 16 130/88 98 Nasal Cannula 2 I/O 03/10/17 03/10/17 03/10/17 03/11/17 03/11/17 03/11/17 07:00 15:00 23:00 07:00 15:00 23:00 Intake Total 1600 ml 580 ml Output Total 1500 ml 620 ml 1200 ml Balance 100 ml -40 ml -1200 ml Intake Oral 480 ml IV Total 600 ml 100 ml Other 1000 ml Output Urine Total 1500 ml 620 ml 1200 ml Physical Exam GENERAL: NAD, AAOx3 SKIN: Warm and dry. HEAD: Atraumatic. Normocephalic. EYES: Pupils equal and round. No scleral icterus. No injection or drainage. ENT: No nasal bleeding or discharge. Mucous membranes pink and moist. NECK: Trachea midline. No JVD. CARDIOVASCULAR: Regular rate and rhythm. RESPIRATORY: No accessory muscle use. Clear to auscultation. Breath sounds equal bilaterally. GASTROINTESTINAL: Abdomen soft, non-tender, nondistended. Hepatic and splenic margins not palpable. MUSCULOSKELETAL: Extremities without clubbing, cyanosis, or edema. No obvious deformities. Right and left groin with no hematoma NEUROLOGICAL: Awake and alert. No obvious cranial nerve deficits. Motor grossly within normal limits. Five out of 5 muscle strength in the arms and legs. Normal speech. PSYCHIATRIC: Appropriate mood and affect; insight and judgment normal. Assessment and Plan Problem List: (1) Paroxysmal atrial fibrillation (2) S/P ablation of atrial fibrillation (3) Tobacco abuse (4) Syncope (5) CAD (coronary artery disease) (6) COPD (chronic obstructive pulmonary disease) Assessment and Plan 1) s/p Afib ablation, stable for discharge today 2) Follow up with Dr. Joy 3) Ariel Queen DO Mar 11, 2017 09:40
--- NOTE | 2017-03-11 09:43 | HHI.DS ---
Discharge Summary Admission Date 03/10/17 Discharge Date: Mar 11, 2017 Admitting Diagnosis PAF s/p afib ablation (1) S/P ablation of atrial fibrillation Diagnosis: Principal (2) Paroxysmal atrial fibrillation Diagnosis: Principal (3) CAD (coronary artery disease) Diagnosis: Secondary (4) COPD (chronic obstructive pulmonary disease) Diagnosis: Secondary CBC/BMP: 03/10/17 0620 03/10/17 0620 Significant Findings Laboratory Tests Test 03/10/17 03/10/17 06:20 07:43 Eosinophils (%) (Auto) 5.8 % (0.0-4.0) Blood Urea Nitrogen 19 MG/DL (7-18) Estimat Glomerular Filtration 88 ML/MIN (>89) Rate Activated Partial 24.0 SEC Thromboplast Time (24.3-30.1) Pt Condition on Discharge: Good Discharge Disposition: Discharge Home Discharge Instructions DIET: Follow Instructions for: Heart Healthy Diet Activities you can perform: See Additionl Instruction Additional Activity Instructio: No lifting more than 10 lbs for 3 days Ariel Mauricio DO Mar 11, 2017 09:42
[2017-03-11 12:18] LABS: APTT (PATIENT) 26.7 SEC (24.3-30.1)
== END 2017-03-11 14:00 | disposition home or self-care (01) ==
LOC: HDOC 05:56 → HDIC 05:56 → HCIS 12:55 → HDOC 03-11 14:00
PROVIDERS: ATTEND Internal Medicine Interventional Cardiology
DX: I48.0 Paroxysmal atrial fibrillation (principal); I25.10 Atherosclerotic heart disease of native coronary artery without angina pectoris; I10 Essential (primary) hypertension; J44.9 Chronic obstructive pulmonary disease, unspecified; I31.3 Pericardial effusion (noninflammatory); Z79.01 Long term (current) use of anticoagulants
CPT/HCPCS: 00537; 80048; 85002; 85025; 85610; 85730; 86850; 86900; 86901; 93005; 93312; 93320; 93325; 93613; 93623; 93656; 93662; 94664; J1644; J1940; J1956; J2370; J2720; J3010; J7040; J7060; J7613